=== PATIENT | female | born 1945 | race Caucasian/White ===

== ENCOUNTER 2017-01-27 15:01 | Emergency (ER) | payer MEDICARE, MEDICAID ==
[2017-01-27] MEDS ORDERED: ONDANSETRON 4 MG TAB.RAPDIS PO ONE (16:03)
[2017-01-27] MEDS ORDERED: NORMAL SALINE 500 ML IV ONE (16:03)
--- NOTE | 2017-01-27 16:05 | ER Document Report ---
ED Medical Screen (RME) - General Chief Complaint: Nausea/Vomiting Stated Complaint: NAUSEA TRAVEL OUTSIDE OF THE [place] IN LAST 30 DAYS: No - HPI Notes: 01/27/17 16:04 Patient receiving chemotherapy just finished up radiation coming in for a 4-5 day history of nausea vomiting unable to keep anything down. Patient feels weak. States her cancer doctor is Dr. Hogan - Related Data Allergies/Adverse Reactions: No Known Allergies Allergy (Verified 01/27/17 15:02) Past Medical History Renal/ Medical History: Denies: Hx Peritoneal Dialysis Review of Systems - Review of Systems Gastrointestinal: Nausea, Vomiting Physical Exam - Vital signs Vitals: Temp Pulse Resp BP Pulse Ox 98.5 F 121 H 15 115/72 93 01/27/17 15:02 01/27/17 15:02 01/27/17 15:02 01/27/17 15:02 01/27/17 15:02 - Abdominal Inspection: Normal Tenderness: Nontender Course - Vital Signs Vital signs: Temp Pulse Resp BP Pulse Ox 98.5 F 121 H 15 115/72 93 01/27/17 15:02 01/27/17 15:02 01/27/17 15:02 01/27/17 15:02 01/27/17 15:02
[2017-01-27 16:28] LABS: ABSOLUTE EOSINOPHILS # (AUTO) 0.1 10^3/uL (0.0-0.6); ABSOLUTE LYMPHOCYTES (AUTO) 0.4 10^3/uL (0.5-4.7); ABSOLUTE MONOCYTES (AUTO) 0.1 10^3/uL (0.1-1.4); ABSOLUTE NEUT (AUTO) 6.2 10^3/uL (1.7-8.2); BASOPHILS % (AUTO) 0.3 % (0-2); EOSINOPHILS % (AUTO) 1.6 % (0-6); HEMATOCRIT 32.4 % (36.0-47.0); HEMOGLOBIN 11.3 g/dL (12.0-15.5); HGB HCT DIFFERENCE 1.5; LYMPHOCYTES % (AUTO) 5.5 % (13-45); MEAN CORPUSCULAR HEMOGLOBIN 32.3 pg (27.0-33.4); MEAN CORPUSCULAR HGB CONC 34.9 g/dL (32.0-36.0); MEAN CORPUSCULAR VOLUME 93 fl (80-97); MONOCYTES % (AUTO) 1.1 % (3-13); RED CELL DISTRIBUTION WIDTH 18.4 % (11.5-14.0); SEGMENTED NEUTROPHILS % (AUTO) 91.5 % (42-78); WHITE BLOOD COUNT 6.7 10^3/uL (4.0-10.5)
[2017-01-27 16:44] LABS: ANION GAP 8 (5-19); BLOOD UREA NITROGEN 14 mg/dL (7-20); CALCIUM 9.4 mg/dL (8.4-10.2); CARBON DIOXIDE 30 mmol/L (22-30); CHLORIDE 94 mmol/L (98-107); CREATININE RESULT 0.66 mg/dL (0.52-1.25); GLUCOSE 390 mg/dL (75-110); POTASSIUM 4.1 mmol/L (3.6-5.0); SODIUM 132.1 mmol/L (137-145)
[2017-01-27] MEDS ORDERED: INSULIN REG, HUMAN 100 UNIT/ML 3 ML VIAL (PYX) SUBCUT ONE ×2 (17:44→18:09)
--- NOTE | 2017-01-27 17:48 | ER Document Report ---
ED General - General Chief Complaint: Nausea/Vomiting Stated Complaint: NAUSEA Mode of Arrival: Ambulatory Information source: Patient Notes: This is a 71-year-old female with a history of stage III lung cancer who presents with nausea and vomiting and decreased oral intake for the past 4-5 days. She states that she completed her last round of chemotherapy 5 days ago and has felt sick since. She denies any fevers or chills. No cough or shortness of breath. No dysuria. She states that today while she was in the waiting room she was able to eat half a bag of potato chips and a few drinks a Pepsi and has kept that down. At this time she is feeling somewhat better. She has an appointment with her oncologist tomorrow. TRAVEL OUTSIDE OF THE [place] IN LAST 30 DAYS: No - Related Data Allergies/Adverse Reactions: No Known Allergies Allergy (Verified 01/27/17 15:02) Past Medical History - General Information source: Patient - Social History Smoking Status: Current Every Day Smoker Frequency of alcohol use: None Drug Abuse: None Lives with: Alone Family History: Reviewed & Not Pertinent Patient has suicidal ideation: No Patient has homicidal ideation: No - Past Medical History Cardiac Medical History: Reports: Hx Hypertension Pulmonary Medical History: Reports: Hx COPD Endocrine Medical History: Reports: Hx Diabetes Mellitus Type 2 Renal/ Medical History: Denies: Hx Peritoneal Dialysis Malignancy Medical History: Reports: Hx Lung Cancer Past Surgical History: Reports: Hx Adenoidectomy, Hx Appendectomy, Hx Cholecystectomy, Hx Tonsillectomy Review of Systems - Review of Systems Notes: REVIEW OF SYSTEMS: CONSTITUTIONAL : Denies fever, chills, or sweats. EENT: Denies eye, ear, throat, or mouth pain or symptoms. Denies nasal or sinus congestion. CARDIOVASCULAR: Denies chest pain. RESPIRATORY: . Denies shortness of breath, difficulty breathing, or wheezing. Chronic cough but no recent change GASTROINTESTINAL: As per history of present illness. No abdominal pain. GENITOURINARY: Denies difficulty urinating, painful urination, burning, frequency, or blood in urine. MUSCULOSKELETAL: Denies neck or back pain or joint pain or swelling. SKIN: Denies rash or skin lesions. HEMATOLOGIC : Denies easy bruising or bleeding. LYMPHATIC: Denies swollen, enlarged glands. NEUROLOGICAL: Denies altered mental status or loss of consciousness. Denies headache. PSYCHIATRIC: Denies anxiety or stress or depression. ALL OTHER SYSTEMS REVIEWED AND NEGATIVE. Physical Exam - Vital signs Vitals: Temp Pulse Resp BP Pulse Ox 98.5 F 121 H 15 115/72 93 01/27/17 15:02 01/27/17 15:02 01/27/17 15:02 01/27/17 15:02 01/27/17 15:02 - Notes Notes: PHYSICAL EXAMINATION: GENERAL: Frail elderly female who is pleasant and conversant and in no acute distress. HEAD: Atraumatic, normocephalic. EYES: Pupils equal round and reactive to light, extraocular movements intact, sclera anicteric, conjunctiva are normal. ENT: nares patent, oropharynx clear without exudates. Mucous membranes somewhat dry. NECK: Normal range of motion, supple without lymphadenopathy LUNGS: Prolonged expiratory phase with scattered end expiratory wheezes. Good air movement bilaterally. No rhonchi HEART: Tachycardic rate with regular rhythm and no murmurs appreciated ABDOMEN: Soft, nontender, normoactive bowel sounds. No guarding, no rebound. No masses appreciated. EXTREMITIES: Normal range of motion, no pitting or edema. No cyanosis. NEUROLOGICAL: No gross focal motor or sensory deficits appreciated PSYCH: Normal mood, normal affect. SKIN: Warm, Dry, normal turgor, no rashes or lesions noted. Course - Re-evaluation Re-evalutation: 01/27/17 19:14 discussed with pt's oncologist Dr. Garcia who recommends reevaluation tomorrow to further assess hydration status. No further recommendations for tonight patient is stable for discharge. Patient really does want to go home now and states she is feeling better. She will follow up with her oncologist tomorrow or Saturday. Strict return precautions were discussed. She and her family are comfortable with the plan. She is noted to be eating a taco and tortilla chips and dip prior to her discharge, and states she feels much better. - Vital Signs Vital signs: Temp Pulse Resp BP Pulse Ox 98.5 F 121 H 14 127/86 H 97 01/27/17 15:02 01/27/17 15:02 01/27/17 19:01 01/27/17 19:00 01/27/17 19:01 - Laboratory Result Diagrams: 01/27/17 16:15 04/02/17 16:15 Laboratory results interpreted by me: 01/27/17 01/27/17 01/27/17 16:15 16:15 18:06 RBC 3.50 L Hgb 11.3 L Hct 32.4 L RDW 18.4 H Seg Neutrophils % 91.5 H Lymphocytes % 5.5 L Monocytes % 1.1 L Absolute Lymphocytes 0.4 L Sodium 132.1 L Chloride 94 L Glucose 390 H POC Glucose 337 H Urine Glucose (UA) 01/27/17 01/27/17 18:16 19:38 RBC Hgb Hct RDW Seg Neutrophils % Lymphocytes % Monocytes % Absolute Lymphocytes Sodium Chloride Glucose POC Glucose 287 H Urine Glucose (UA) >=500 H Discharge - Discharge Clinical Impression: Dehydration Nausea and vomiting Qualifiers: Vomiting type: unspecified Vomiting Intractability: non-intractable Qualified Code(s): R11.2 - Nausea with vomiting, unspecified Hyperglycemia due to type 2 diabetes mellitus Qualifiers: Diabetes mellitus intermediate project manager insulin use: unspecified care home insulin use status Qualified Code(s): E11.65 - Type 2 diabetes mellitus with hyperglycemia Condition: Stable Disposition: HOME, SELF-CARE Additional Instructions: Vomiting Vomiting can be part of many illnesses. Most cases of vomiting are due to gastroenteritis, usually a viral infection in the intestinal tract. There is no specific treatment. The disease will end by itself. For now, the main danger to your child is dehydration. During the first few hours of the illness, give clear liquids, such as Pedialyte. Try to give small quantities frequently, such as a teaspoon of liquid every minute or about an ounce of fluids every five to ten minutes. Medications may be prescribed by the physician for special cases. After an hour or two of fluids without vomiting, add rice cereal, toast, applesauce, or bananas and other more solid foods to the clear liquids. Call the physician or go to the hospital if vomiting increases or blood appears in the bowel movement or vomitus; if your child fails to improve, or if signs of dehydration occur (no wet diapers for eight to twelve hours, tongue and mouth become dry, not acting as alert as usual).Dehydration Dehydration can result from vomiting or diarrhea, fever, or decreased intake of fluids. If severe, hospitalization and intravenous fluids may be required. Most cases are treated at home with fluids by mouth. For the next 24 hours, drink lots of clear fluids. In mild cases, this can be soda pop or sports drinks. For more severe dehydration, the doctor may recommend special fluids such as Pedialyte or Lytren. Try to get three liters ( 3 quarts) of fluid per day. If vomiting occurs, continue to drink the fluids frequently (every 15 to 20 minutes), but in small amounts (one or two ounces). Depending on the type of dehydration, the doctor may prescribe antinausea medicine or potassium replacements. Call the doctor or return for re-examination if you become progressively weak, vomit repeatedly, or have other new symptoms. Follow up with Dr. Garcia tomorrow as scheduled as she would like to reassess your hydration status tomorrow. Return to the ER for fevers or any worsening symptoms or concerns. Referrals: LINDA GARCIA MD [ACTIVE STAFF] - Follow up tomorrow
[2017-01-27 18:29] LABS: APPEARANCE,URINE SLIGHTLY-CLOUDY; BILIRUBIN,URINE NEGATIVE (NEGATIVE); GLUCOSE, URINE >=500 mg/dL (NEGATIVE); KETONES,URINE NEGATIVE (NEGATIVE); LEUKOCYTE ESTERASE,URINE NEGATIVE (NEGATIVE); NITRITE,URINE NEGATIVE (NEGATIVE); PROTEIN,URINE NEGATIVE (NEGATIVE); URINE SPECIFIC GRAVITY 1.031; UROBILINOGEN,URINE NEGATIVE mg/dL (<2.0)
[2017-01-27 19:33] VITALS: BP 127/86
== END 2017-01-27 19:42 | disposition home or self-care (01) ==
LOC: ER 15:01
DX: E86.0 Dehydration (principal); E11.65 Type 2 diabetes mellitus with hyperglycemia; R11.2 Nausea with vomiting, unspecified; C34.90 Malignant neoplasm of unspecified part of unspecified bronchus or lung; Z79.899 Other long term (current) drug therapy; F17.200 Nicotine dependence, unspecified, uncomplicated
CPT/HCPCS: 99283; 96360; 36415; 82962; 85025; 80048; 81001; A9270 ×2; J7040; J1815; S0119

== ENCOUNTER → 2017-02-06 | Outpatient (CLI) | payer MEDICARE, MEDICAID | LOC: OD 13:31 | PROVIDERS: ATTEND Internal Medicine Medical Oncology | DX: R05 Cough (principal); J44.9 Chronic obstructive pulmonary disease, unspecified | CPT/HCPCS: 71020 ==

== ENCOUNTER 2017-03-12 11:59 | Inpatient (IN) | payer MEDICARE, MEDICAID ==
--- NOTE | 2017-03-12 12:22 | ER Document Report ---
ED Medical Screen (RME) - General Chief Complaint: Shortness Of Breath Stated Complaint: SHORTNESS OF BREATH Time Seen by Provider: 03/12/17 12:13 Notes: 71-year-old female with past medical history of asthma, COPD, states they lung cancer actively on chemotherapy who presents today with the onset last night of some shortness of breath. This was relieved somewhat by nebulizers. Patient denies any fevers, vomiting, or chest pain. She states some minimal bilateral leg edema for the last 3-4 months. Daughter is concerned because she states over the last 48 hours the patient has had some increased confusion above baseline. No slurred speech weakness or numbness. TRAVEL OUTSIDE OF THE [place] IN LAST 30 DAYS: No - Related Data Allergies/Adverse Reactions: No Known Allergies Allergy (Verified 03/12/17 12:03) Past Medical History - Past Medical History Cardiac Medical History: Reports: Hx Hypertension Pulmonary Medical History: Reports: Hx COPD Endocrine Medical History: Reports: Hx Diabetes Mellitus Type 2 Renal/ Medical History: Denies: Hx Peritoneal Dialysis Malignancy Medical History: Reports: Hx Lung Cancer Past Surgical History: Reports: Hx Adenoidectomy, Hx Appendectomy, Hx Cholecystectomy, Hx Tonsillectomy Physical Exam - Vital signs Vitals: Temp Pulse Resp BP Pulse Ox 97.6 F 104 H 18 115/57 L 95 03/12/17 12:03 03/12/17 12:03 03/12/17 12:03 03/12/17 12:03 03/12/17 12:03 Course - Vital Signs Vital signs: Temp Pulse Resp BP Pulse Ox 97.6 F 104 H 18 115/57 L 95 03/12/17 12:03 03/12/17 12:03 03/12/17 12:03 03/12/17 12:03 03/12/17 12:03
--- NOTE | 2017-03-12 12:30 | ER Document Report ---
ED Respiratory Problem - General Chief Complaint: Shortness Of Breath Stated Complaint: SHORTNESS OF BREATH Time Seen by Provider: 03/12/17 12:13 Mode of Arrival: Wheelchair Information source: Patient Notes: 71 yo ex smoker (until few weeks ago) female with shortness of breath (not enough oxygen-very scarey feeling) since midnight. Daughter visiting from [place] states her mild confusion, anemia, started later yesterday afternoon. Asking her same question 3-4 times. PMH: asthma, copd, diabetes, shoulder replacement, complete hyst, bladder slings, roberto, carpel tunnel surgery rt wrist, hand surgery, nose surgery, stage 3 right lung cancer (5-3 chemo-dr. marshall). Feet and leg swelling for 1.5 weeks. duoneb Nebulizer this am at 10 am helped her be able to take a deep breath and ability to talk pulse ox 97% without oxygen at this time. TRAVEL OUTSIDE OF THE [place] IN LAST 30 DAYS: No - Related Data Allergies/Adverse Reactions: No Known Allergies Allergy (Verified 03/12/17 12:03) Past Medical History - General Information source: Patient - Social History Smoking Status: Former Smoker - until 1.5 weeks ago Frequency of alcohol use: None Drug Abuse: None Lives with: Family Family History: Reviewed & Not Pertinent Patient has suicidal ideation: No Patient has homicidal ideation: No - Past Medical History Cardiac Medical History: Reports: Hx Hypertension Pulmonary Medical History: Reports: Hx COPD, Other - lung cancer Endocrine Medical History: Reports: Hx Diabetes Mellitus Type 2 Renal/ Medical History: Denies: Hx Peritoneal Dialysis Malignancy Medical History: Reports: Hx Lung Cancer Past Surgical History: Reports: Hx Adenoidectomy, Hx Appendectomy, Hx Cholecystectomy, Hx Tonsillectomy Review of Systems - Review of Systems Constitutional: No symptoms reported EENT: No symptoms reported Cardiovascular: No symptoms reported Respiratory: See HPI Gastrointestinal: No symptoms reported Genitourinary: No symptoms reported Female Genitourinary: No symptoms reported Musculoskeletal: No symptoms reported Skin: No symptoms reported Hematologic/Lymphatic: No symptoms reported Neurological/Psychological: No symptoms reported Physical Exam - Vital signs Vitals: Temp Pulse Resp BP Pulse Ox 97.6 F 104 H 18 115/57 L 95 03/12/17 12:03 03/12/17 12:03 03/12/17 12:03 03/12/17 12:03 03/12/17 12:03 Interpretation: Tachycardic, Tachypneic - General General appearance: Alert. No: Anxious - HEENT Head: Normocephalic, Atraumatic Eyes: Normal Pupils: PERRL Neck: Supple. No: Lymphadenopathy - Respiratory Respiratory status: No respiratory distress Chest status: Nontender Breath sounds: Wheezing - expiratory bilateral. No: Rales Chest palpation: Normal - Cardiovascular Rhythm: Regular Heart sounds: Normal auscultation Murmur: No - Abdominal Inspection: Normal Distension: No distension Bowel sounds: Normal Tenderness: Nontender Organomegaly: No organomegaly - Back Back: Normal, Nontender - Extremities General upper extremity: Normal inspection, Nontender, Normal color, Normal ROM , Normal temperature General lower extremity: Normal inspection, Nontender, Normal color, Normal ROM , Normal temperature, Normal weight bearing. No: Logan's sign - Neurological Neuro grossly intact: Yes Cognition: Normal Orientation: AAOx4 [place] Coma Scale Eye Opening: Spontaneous [place] Coma Scale Verbal: Oriented [place] Coma Scale Motor: Obeys Commands [place] Coma Scale Total: 15 Speech: Normal Motor strength normal: LUE, RUE, LLE, RLE Sensory: Normal - Psychological Associated symptoms: Normal affect, Normal mood - Skin Skin Temperature: Warm Skin Moisture: Dry Skin Color: Normal Course - Re-evaluation Re-evalutation: 03/12/17 13:57 dr. bazan consulted, saw the pt, rec trop repeat in 2 hours, conitnue with the steroids, get ekg and chest claudia then consult again. troponin 0.221 03/12/17 15:04 Less but persistent expiratory wheezing bilateral. Less strain with expiratory phase of breathing. They are attempting ABG. Pulse 110 respiratory rate 25 pulse ox is 97% on room air. I am going to give her a 5 mL normal saline bolus. 03/12/17 15:58 Dr. almaraz will admit inpatient telemetry and asked to order a CTA. I also added 2 L nasal cannula since her room air FiO2 on ABG was 91.6. Her O2 was 59 CO2 29. - Vital Signs Vital signs: Temp Pulse Resp BP Pulse Ox 97.6 F 104 H 19 134/75 H 96 03/12/17 12:03 03/12/17 12:03 03/12/17 15:00 03/12/17 14:01 03/12/17 15:00 - Laboratory Result Diagrams: 03/12/17 12:25 03/12/17 12:25 Laboratory results interpreted by me: 03/12/17 03/12/17 03/12/17 12:25 12:25 12:25 RBC 2.66 L Hgb 9.4 L Hct 28.4 L MCV 107 H MCH 35.3 H RDW 20.7 H Seg Neutrophils % 80.5 H Lymphocytes % 8.2 L ABG pO2 ABG HCO3 ABG Total CO2 ABG O2 Saturation Glucose 365 H POC Glucose NT-Pro-B Natriuret Pep 6330 H 03/12/17 03/12/17 14:58 15:00 RBC Hgb Hct MCV MCH RDW Seg Neutrophils % Lymphocytes % ABG pO2 59.0 L ABG HCO3 27.3 H ABG Total CO2 28.6 H ABG O2 Saturation 91.6 L Glucose POC Glucose 312 H NT-Pro-B Natriuret Pep Discharge - Discharge Clinical Impression: Shortness of breath, Hypoxemia, small right pleural effusion Cancer of right lung Qualifiers: Lung location: unspecified part of lung Qualified Code(s): C34.91 - Malignant neoplasm of unspecified part of right bronchus or lung Condition: Stable Admitting Provider: Hospitalist Unit Admitted: Telemetry Referrals: LINDA GARCIA MD [Primary Care Provider] - Follow up as needed
[2017-03-12 12:39] LABS: ABSOLUTE EOSINOPHILS # (AUTO) 0.1 10^3/uL (0.0-0.6); ABSOLUTE LYMPHOCYTES (AUTO) 0.5 10^3/uL (0.5-4.7); ABSOLUTE MONOCYTES (AUTO) 0.6 10^3/uL (0.1-1.4); ABSOLUTE NEUT (AUTO) 5.4 10^3/uL (1.7-8.2); BASOPHILS % (AUTO) 0.6 % (0-2); EOSINOPHILS % (AUTO) 1.4 % (0-6); HEMATOCRIT 28.4 % (36.0-47.0); HEMOGLOBIN 9.4 g/dL (12.0-15.5); HGB HCT DIFFERENCE -0.2; LYMPHOCYTES % (AUTO) 8.2 % (13-45); MEAN CORPUSCULAR HEMOGLOBIN 35.3 pg (27.0-33.4); MEAN CORPUSCULAR HGB CONC 33.1 g/dL (32.0-36.0); MEAN CORPUSCULAR VOLUME 107 fl (80-97); MONOCYTES % (AUTO) 9.3 % (3-13); RED BLOOD COUNT 2.66 10^6/uL (3.72-5.28); RED CELL DISTRIBUTION WIDTH 20.7 % (11.5-14.0); SEGMENTED NEUTROPHILS % (AUTO) 80.5 % (42-78); WHITE BLOOD COUNT 6.7 10^3/uL (4.0-10.5)
[2017-03-12] MEDS ORDERED: ALBUTEROL SULFATE 0.083% NEB 2.5 MG/3 ML AMPUL NEB ONE (12:46)
[2017-03-12 12:52] LABS: ANION GAP 11 (5-19); BLOOD UREA NITROGEN 8 mg/dL (7-20); CALCIUM 8.6 mg/dL (8.4-10.2); CARBON DIOXIDE 30 mmol/L (22-30); CHLORIDE 100 mmol/L (98-107); CREATININE RESULT 0.53 mg/dL (0.52-1.25); GLUCOSE 365 mg/dL (75-110); SODIUM 140.5 mmol/L (137-145)
[2017-03-12] MEDS ORDERED: PREDNISONE 20 MG TABLET PO ONE (12:53)
[2017-03-12 13:19] LABS: TROPONIN I 0.221 ng/mL
[2017-03-12] MEDS ORDERED: INSULIN REG, HUMAN 100 UNIT/ML 3 ML VIAL (PYX) IV ONE (13:48)
[2017-03-12] MEDS ORDERED: METHYLPREDNISOLONE INJ 125 MG/2 ML SDV IV ONE (13:50)
[2017-03-12] MEDS ORDERED: IPRATROPIUM/ALBUTEROL 0.5-2.5 MG/3 ML AMPUL NEB ONE (13:55)
[2017-03-12] MEDS ORDERED: NORMAL SALINE 1000 ML 500 ML IV ONE (15:03)
[2017-03-12 15:19] LABS: ARTERIAL BLOOD O2 SATURATION 91.6 % (94-98)
[2017-03-12 17:06] LABS: APPEARANCE,URINE CLEAR; BILIRUBIN,URINE NEGATIVE (NEGATIVE); GLUCOSE, URINE >=500 mg/dL (NEGATIVE); KETONES,URINE NEGATIVE (NEGATIVE); LEUKOCYTE ESTERASE,URINE NEGATIVE (NEGATIVE); NITRITE,URINE NEGATIVE (NEGATIVE); PROTEIN,URINE NEGATIVE (NEGATIVE); URINE SPECIFIC GRAVITY 1.021; UROBILINOGEN,URINE NEGATIVE mg/dL (<2.0)
[2017-03-12] MEDS ORDERED: ACETAMINOPHEN 325 MG TABLET PO PRN (18:03)
[2017-03-12] MEDS ORDERED: NORMAL SALINE 1000 ML 1,000 ML IV PRN (18:03)
[2017-03-12] MEDS ORDERED: LEVALBUTEROL HCL NEB 1.25 MG/3 ML AMPUL NEB PRN (18:03)
[2017-03-12] MEDS ORDERED: ONDANSETRON HCL INJ/PF 4 MG/2 ML SDV IV PRN (18:08)
[2017-03-12] MEDS ORDERED: GLUCAGON,HUMAN RECOMB 1 MG INJ IM PRN (18:14)
[2017-03-12] MEDS ORDERED: DEXTROSE 50%-WATER 25 GM/50 ML DISP.SYRIN IV PRN ×2 (18:14)
[2017-03-12] MEDS ORDERED: DEXTROSE 40% GEL 15 GM TUBE PO PRN ×2 (18:14)
[2017-03-12] MEDS ORDERED: IMIPENEM/CILASTATIN SODIUM INJ 500 MG VIAL IV SCH (18:30)
[2017-03-12] MEDS: INSULIN REG, HUMAN 100 UNIT/ML 3 ML VIAL (PYX) SUBCUT PRN ×2 (18:48→22:28)
--- NOTE | 2017-03-12 18:55 | PDOC H&P ---
History of Present Illness Admission Date/PCP: 03/12/17 16:07 LINDA GARCIA MD Patient complains of: Shortness of breath History of Present Illness: EMMA MORRISON is a 71 year old female, with stage III lung cancer, COPD brought to the emergency room because of shortness of breath and wheezing upon waking up earlier this morning. The patient was doing well last weekend, yesterday however she started to develop confusion as noticed by the family. The patient has chronic cough attributed to the lung cancer. This is associated with brownish phlegm. Patient had an episode of pleurisy about a week ago that resolved with Ativan and she attribute it to anxiety. There is no definite chills or fever. Patient occasionally has symptoms soreness and throat but a lot of it is dryness. Patient had intermittent diarrhea as well. Patient started to develop wheezing as stated above where she will take her nebulizers providing partial improvement, however the symptom persisted. She called her allergies will advise her to come to the emergency room for evaluation. In the emergency room she was found to have pleural effusion, COPD exacerbation and given nebulizers which her shortness of breath improved and she was referred for admission. Past Medical History Past Medical History: Medication reconciliation pending verification from the patient's pharmacist Cardiac Medical History: Reports: Hypertension Pulmonary Medical History: Reports: Chronic Obstructive Pulmonary Disease (COPD) , Other - lung cancer stage III Endocrine Medical History: Reports: Diabetes Mellitus Type 2 Malignancy Medical History: Reports: Lung Cancer, Other - Chronic anemia Past Surgical History Past Surgical History: Reports: Adenoidectomy, Appendectomy, Cholecystectomy, Hysterectomy, Tonsillectomy, Other - Carpal tunnel release, shoulder replacement Social History Lives with: Family Smoking Status: Former Smoker - until 1.5 weeks ago Frequency of Alcohol Use: None Hx Recreational Drug Use: No Drugs: None Family History Family History: CAD, Malignancy - Breast and lung cancer Parental Family History Reviewed: Yes Children Family History Reviewed: Yes Sibling(s) Family History Reviewed.: Yes Medication/Allergy Home Medications: Albuterol Sulfate [Albuterol Sulfate 2.5mg/3 mL] 1 vial NEB Q6HP PRN 03/12/17 Albuterol Sulfate [Ventolin Hfa] 1 puff IH QIDP PRN 03/12/17 Colesevelam HCl [Welchol 625 mg Tablet] 3 tab PO DAILY 03/12/17 Dronabinol [Marinol 2.5 mg Capsule] 2.5 mg PO BID 03/12/17 Fenofibrate Nanocrystallized [Fenofibrate] 145 mg PO QHS 03/12/17 Insulin Aspart [Novolog Flexpen] 8 units SQ MEALS 03/12/17 Iron Polysaccharide Complex [Ferrex 150] 150 mg PO DAILY 03/12/17 Losartan/Hydrochlorothiazide [Hyzaar 50-12.5 Tablet] 1 tab PO DAILY 03/12/17 Sitagliptin Phosphate [Januvia] 100 mg PO DAILY 03/12/17 Umeclidinium Brm/Vilanterol Tr [Anoro Ellipta 62.5-25 Mcg INH] 1 puff IH DAILY 03/12/17 Allergies/Adverse Reactions: No Known Allergies Allergy (Verified 03/12/17 12:03) Review of Systems Constitutional: PRESENT: weakness - Generalized, weight loss - 20 pounds at least. ABSENT: chills, fever(s), headache(s), weight gain Eyes: ABSENT: visual disturbances Ears: ABSENT: hearing changes Nose, Mouth, and Throat: PRESENT: sore throat - Occasional. ABSENT: mouth pain , vertigo Cardiovascular: PRESENT: dyspnea on exertion, edema - Both lower extremities. ABSENT: orthropnea, palpitations Respiratory: PRESENT: cough, dyspnea, sputum. ABSENT: hemoptysis Gastrointestinal: PRESENT: abdominal pain - Intermittent, diarrhea, nausea - Occasional. ABSENT: constipation, hematemesis, hematochezia, melena, vomiting Genitourinary: ABSENT: difficulty urinating, dysuria, hematuria Musculoskeletal: ABSENT: joint swelling Integumentary: ABSENT: pruritus, rash, wounds Neurological: ABSENT: abnormal gait, abnormal speech, confusion, dizziness, focal weakness, syncope Psychiatric: ABSENT: anxiety, depression, homidical ideation, suicidal ideation Endocrine: ABSENT: cold intolerance, heat intolerance, polydipsia, polyphagia, polyuria Hematologic/Lymphatic: ABSENT: easy bleeding, easy bruising Physical Exam Vital Signs: Temp Pulse Resp BP Pulse Ox 97.6 F 104 H 20 133/78 H 99 03/12/17 12:03 03/12/17 12:03 03/12/17 17:01 03/12/17 17:01 03/12/17 17:01 General appearance: PRESENT: no acute distress, thin, other - Alopecia Head exam: PRESENT: atraumatic, normocephalic Eye exam: PRESENT: conjunctiva pale, EOMI, PERRLA. ABSENT: scleral icterus Ear exam: PRESENT: normal external ear exam. ABSENT: drainage Mouth exam: PRESENT: dry mucosa, neck supple, tongue midline Throat exam: PRESENT: other - No thrush noted. ABSENT: post pharyngeal erythema , tonsillar erythema Neck exam: ABSENT: carotid bruit, JVD, lymphadenopathy, thyromegaly Respiratory exam: PRESENT: decreased breath sounds - Lower lung weber right more than the left, wheezes - Scattered bilateral expiratory. ABSENT: rales, rhonchi Cardiovascular exam: PRESENT: RRR, +S1, +S2. ABSENT: diastolic murmur, gallop, rubs, systolic murmur Pulses: PRESENT: normal dorsalis pedis pul Vascular exam: PRESENT: normal capillary refill GI/Abdominal exam: PRESENT: normal bowel sounds, soft. ABSENT: distended, guarding, mass, organolmegaly, rebound, tenderness Rectal exam: PRESENT: deferred Extremities exam: PRESENT: full ROM. ABSENT: calf tenderness, clubbing, pedal edema Neurological exam: PRESENT: alert, awake, oriented to person, oriented to place , oriented to time, oriented to situation Psychiatric exam: PRESENT: appropriate affect, normal mood. ABSENT: homicidal ideation, suicidal ideation Skin exam: PRESENT: dry, intact, warm. ABSENT: cyanosis, rash Results Laboratory Results: 03/12/17 16:30 Urine Color YELLOW Urine Appearance CLEAR Urine pH 5.0 Ur Specific [place] 1.021 Urine Protein NEGATIVE Urine Glucose (UA) >=500 H Urine Ketones NEGATIVE Urine Blood NEGATIVE Urine Nitrite NEGATIVE Ur Leukocyte Esterase NEGATIVE Urine WBC (Auto) 1 Urine RBC (Auto) 0 Impressions: Chest X-Ray 03/12/17 13:52 IMPRESSION: New trace right pleural effusion Minimal right basilar airspace disease likely atelectasis Chest/Abdomen CTA 03/12/17 15:58 IMPRESSION: No pulmonary emboli. Moderate free flowing right effusion in small left effusion. Volume loss in the right middle lobe. Assessment & Plan - Diagnosis (1) Bilateral pleural effusion Is this a current diagnosis for this admission?: Yes (2) COPD exacerbation Is this a current diagnosis for this admission?: Yes (3) Anemia of chronic disease Is this a current diagnosis for this admission?: Yes (4) Lung cancer Qualifiers: Laterality: right Lung location: unspecified part of lung Qualified Code(s): C34.91 - Malignant neoplasm of unspecified part of right bronchus or lung Is this a current diagnosis for this admission?: Yes (5) Type II diabetes mellitus Qualifiers: Diabetes mellitus complication status: with unspecified complications Diabetes mellitus manager long term care insulin use: without shelter use Qualified Code(s): E11.8 - Type 2 diabetes mellitus with unspecified complications Is this a current diagnosis for this admission?: Yes - Time Time Spent: 50 to 70 Minutes - Inpatient Certification Based on my medical assessment, after consideration of the patient's comorbidities, presenting symptoms, or acuity I expect that the services needed warrant INPATIENT care.: Yes I certify that my determination is in accordance with my understanding of Medicare's requirements for reasonable and necessary INPATIENT services [42 CFR 412.3e].: Yes Medical Necessity: Significant Comorbidiites Make Outpatient Treatment Too Risky , Need Close Monitoring Due to Risk of Patient Decompensation, Need for Nebulizer Therapy and Monitoring of Response, Need for IV Antibiotics Post Hospital Care: D/C Mainframe Analyst Documentation - Plan Summary Plan Summary: The patient will be admitted to telemetry. We will obtain thoracenteses and cultured the fluid and send it for cytology as well. In the meantime we will cultured of blood as well as the sputum and urine. We will begin broad- spectrum antibiotic. Intravenous steroids and [id number] nebulizer will be given. Supplemental oxygen will be placed. DVT prophylaxis with Lovenox will be added to the treatment regimen. We will consult Dr. Garcia for further evaluation. We will get cardiology opinion, regarding the abnormal troponins. Further testing depends on the initial evaluation as outlined above.
[2017-03-12] MEDS ORDERED: ENOXAPARIN SODIUM INJ 40 MG/0.4 ML DISP.SYRIN SUBCUT ONE (19:00)
[2017-03-12] MEDS: IPRATROPIUM/ALBUTEROL 0.5-2.5 MG/3 ML AMPUL NEB SCH ×2 (20:18→23:40)
[2017-03-12 20:42] LABS: PROTHROMBIN TIME 12.4 SEC (11.4-15.4)
[2017-03-12 20:43] LABS: PARTIAL THROMBOPLASTIN TIME 31.7 SEC (23.5-35.8)
[2017-03-12] MEDS: METHYLPREDNISOLONE INJ 125 MG/2 ML SDV IV SCH (21:54)
[2017-03-12] MEDS: IMIPENEM/CILASTATIN SODIUM 500 MG in NORMAL SALINE 100 ML IV SCH (21:58)
--- NOTE | 2017-03-12 22:10 | EKG REPORT ---
SEVERITY:- ABNORMAL ECG - SINUS TACHYCARDIA ABNRM R PROG, CONSIDER ASMI OR LEAD PLACEMENT NONSPECIFIC T ABNORMALITIES, LATERAL LEADS : Confirmed by: Irlanda Bearden MD 12-Mar-2017 22:09:59
--- NOTE | 2017-03-12 23:34 | PDOC CONSULTATION ---
Consultation Consult Date: 03/12/17 Attending physician:: MICHAEL ESPINOSA Consult reason:: Dyspnea History of Present Illness Admission Date/PCP: 03/12/17 18:03 LINDA GARCIA MD Patient complains of: Shortness of breath History of Present Illness: EMMA MORRISON is a 71 year old female, with stage III lung cancer, COPD brought to the emergency room because of shortness of breath and wheezing upon waking up earlier this morning. The patient was doing well last weekend, yesterday however she started to develop confusion as noticed by the family. The patient has chronic cough attributed to the lung cancer. This is associated with brownish phlegm. Patient had an episode of pleurisy about a week ago that resolved with Ativan and she attribute it to anxiety. There is no chills or fever. Patient had intermittent diarrhea as well. Patient started to develop wheezing and nebulizers providing only partial improvement. Pt came to the emergency room for evaluation. In the emergency room she was found to have pleural effusion, COPD exacerbation and given nebulizers with which her shortness of breath improved. I have been asked to sse patient because of elevated troponin I. Pt denies any chest pain. On questioning patient did admit having some chest discomfort several weeks ago while she was getting chemotherapy. Patient's daughter in the room. Patient denied any prior history of myocardial infarction, angina or congestive heart failure. Patient main symptoms has been dyspnea. Patient has noted some pedal edema intermittently. This history was reviewed, supplemented and confirmed. Past Medical History Cardiac Medical History: Reports: Hypertension Denies: Congestive Heart Failure, Coronary Artery Disease, Myocardial Infarction Pulmonary Medical History: Reports: Chronic Obstructive Pulmonary Disease (COPD) , Other - lung cancer stage III Neurological Medical History: Denies: Ischemic CVA Endocrine Medical History: Reports: Diabetes Mellitus Type 2 Malignancy Medical History: Reports: Lung Cancer, Other - Chronic anemia Past Surgical History Past Surgical History: Reports: Adenoidectomy, Appendectomy, Cholecystectomy, Hysterectomy, Tonsillectomy, Other - Carpal tunnel release, shoulder replacement Social History Information Source: Patient Lives with: Family Smoking Status: Former Smoker - until 1.5 weeks ago Frequency of Alcohol Use: None Hx Recreational Drug Use: No Drugs: None - Advance Directive Resuscitation Status: Full Code Surrogate healthcare decision maker:: Patient's daughter Family History Family History: CAD, Malignancy - Breast and lung cancer Parental Family History Reviewed: Yes Children Family History Reviewed: Yes Sibling(s) Family History Reviewed.: Yes Medication/Allergy Home Medications: Colesevelam HCl [Welchol 625 mg Tablet] 3 tab PO DAILY 03/12/17 Dronabinol [Marinol 2.5 mg Capsule] 2.5 mg PO BID 03/12/17 Fenofibrate Nanocrystallized [Fenofibrate] 145 mg PO QHS 03/12/17 Insulin Aspart [Novolog Flexpen] 8 units SQ MEALS 03/12/17 Iron Polysaccharide Complex [Ferrex 150] 150 mg PO DAILY 03/12/17 Losartan/Hydrochlorothiazide [Hyzaar 50-12.5 Tablet] 1 tab PO DAILY 03/12/17 Sitagliptin Phosphate [Januvia] 100 mg PO DAILY 03/12/17 Umeclidinium Brm/Vilanterol Tr [Anoro Ellipta 62.5-25 Mcg INH] 1 puff IH DAILY 03/12/17 Aspirin [Aspirin 325 mg Tablet] 325 mg PO DAILY tablet 03/16/17 Clindamycin HCl [Cleocin 150 mg Capsule] 300 mg PO Q6 #40 capsule 03/16/17 Ipratropium [place] [Atrovent 0.02% Neb 0.5 mg/2.5 ml Ampul] 0.5 mg NEB RTQ6 # 120 vial.neb 03/16/17 Levalbuterol HCl [Xopenex Neb 1.25 mg/3 ml Ampul] 1.25 mg NEB RTQ6 #120 vial.neb 03/16/17 Levofloxacin [Levaquin 750 mg Tablet] 750 mg PO DAILY #10 tablet 03/16/17 Metoprolol Tartrate [Lopressor 25 mg Tablet] 25 mg PO Q12 #60 tablet 03/16/17 Prednisone [Sterapred Ds] 1 pkg PO ASDIR PRN 12 Days 03/16/17 Allergies/Adverse Reactions: No Known Allergies Allergy (Verified 03/12/17 12:03) Review of Systems Constitutional: ABSENT: chills, fever(s), headache(s), weight gain, weight loss Eyes: ABSENT: visual disturbances Ears: ABSENT: hearing changes Cardiovascular: PRESENT: chest pain, dyspnea on exertion, edema, orthropnea. ABSENT: palpitations Respiratory: PRESENT: cough, sputum. ABSENT: hemoptysis Gastrointestinal: ABSENT: abdominal pain, constipation, diarrhea, hematemesis, hematochezia, nausea, vomiting Genitourinary: ABSENT: dysuria, hematuria Musculoskeletal: ABSENT: joint swelling Integumentary: ABSENT: rash, wounds Neurological: ABSENT: abnormal gait, abnormal speech, confusion, dizziness, focal weakness, syncope Psychiatric: ABSENT: anxiety, depression, homidical ideation, suicidal ideation Endocrine: ABSENT: cold intolerance, heat intolerance, polydipsia, polyuria Hematologic/Lymphatic: ABSENT: easy bleeding, easy bruising Physical Exam Vital Signs: Temp Pulse Resp BP Pulse Ox 98.2 F 115 H 16 126/62 H 100 03/12/17 21:02 03/12/17 21:02 03/12/17 21:02 03/12/17 21:02 03/12/17 21:02 Intake & Output 03/11/17 03/12/17 03/13/17 06:59 06:59 06:59 Weight 54.9 kg General appearance: PRESENT: no acute distress, well-developed, well-nourished Head exam: PRESENT: atraumatic, normocephalic Eye exam: PRESENT: conjunctiva pink, EOMI, PERRLA. ABSENT: scleral icterus Ear exam: PRESENT: normal external ear exam Mouth exam: PRESENT: moist, tongue midline Neck exam: ABSENT: carotid bruit, JVD, lymphadenopathy, thyromegaly Respiratory exam: PRESENT: prolonged expiratory phas, rales - Bib[place], wheezes. ABSENT: rhonchi Cardiovascular exam: PRESENT: RRR, +S1, +S2, systolic murmur - 1/6 ejection aortic area.. ABSENT: diastolic murmur, gallop, rubs Pulses: PRESENT: normal dorsalis pedis pul Vascular exam: PRESENT: normal capillary refill GI/Abdominal exam: PRESENT: normal bowel sounds, soft. ABSENT: distended, guarding, mass, organolmegaly, rebound, tenderness Rectal exam: PRESENT: deferred Extremities exam: PRESENT: full ROM, pedal edema, +1 edema. ABSENT: calf tenderness, clubbing Musculoskeletal exam: PRESENT: ambulatory, other - No joint swelling noted Neurological exam: PRESENT: alert, awake, oriented to person, oriented to place , oriented to time, oriented to situation, CN II-XII grossly intact. ABSENT: motor sensory deficit Psychiatric exam: PRESENT: appropriate affect, normal mood. ABSENT: homicidal ideation, suicidal ideation Skin exam: PRESENT: dry, intact, warm. ABSENT: cyanosis, rash Results EKG Comments: NSR, ASMI age indeterminate Impressions: Chest X-Ray 03/12/17 13:52 IMPRESSION: New trace right pleural effusion Minimal right basilar airspace disease likely atelectasis Chest/Abdomen CTA 03/12/17 15:58 IMPRESSION: No pulmonary emboli. Moderate free flowing right effusion in small left effusion. Volume loss in the right middle lobe. Assessment & Plan - Diagnosis (1) Troponin level elevated Is this a current diagnosis for this admission?: Yes (2) CHF (congestive heart failure) Qualifiers: Congestive heart failure type: unspecified congestive heart failure type Congestive heart failure chronicity: acute on chronic Qualified Code(s ): I50.9 - Heart failure, unspecified Is this a current diagnosis for this admission?: Yes (3) COPD exacerbation Is this a current diagnosis for this admission?: Yes (4) Hypoxemia Is this a current diagnosis for this admission?: Yes (5) Shortness of breath Is this a current diagnosis for this admission?: Yes (6) Type II diabetes mellitus Qualifiers: Diabetes mellitus complication status: with unspecified complications Diabetes mellitus usp insulin use: without truck terminal manager use Qualified Code(s): E11.8 - Type 2 diabetes mellitus with unspecified complications; Z79.4 - longterm (current) use of insulin Is this a current diagnosis for this admission?: Yes - Notes Notes: Troponin I elevation: This is felt to be multifactorial and could be related to CHF, COPD exacerbation, hypoxemia etc. Sometimes this could be lab error in people with cancer because of interference with assay. I have added total CK and CK-MB to be drawn. Have ordered a 2D echo. Patient has risk factors and does have abnormal EKG indicative of prior anteroseptal TN therefore possibility of left over cardiac enzyme elevation from previous infarction is there. CHF: Have ordered a 2D echo to determine cause of CHF. Most likely systolic plus diastolic dysfunction in view of abnormal EKG. COPD with exacerbation: Continue current management plan. Hypoxemia: Continue oxygen supplementation and intermittent positive pressure noninvasive ventilation. Diabetes: Being expectantly managed by hospitalist. Check CKMB, Total CK, Echocardiogram. Will follow patient closely. - Time Time Spent: 30 to 50 Minutes - CODE STATUS was discussed, patient remains full code. Surrogate decision-maker patient's daughter. Multiple medical problems were addressed. More than 50% of the time spent coordinating care, discussing management plans with involved caregivers. Management plans discussed with involved personnels. Medical decision making was of moderate to high complexity , patient's has multiple severe comorbidities. Medications reviewed and adjusted accordingly: Yes
[2017-03-13] MEDS: METHYLPREDNISOLONE INJ 125 MG/2 ML SDV IV SCH ×4 (02:54→23:00)
[2017-03-13] MEDS: IMIPENEM/CILASTATIN SODIUM 500 MG in NORMAL SALINE 100 ML IV SCH ×4 (02:58→23:00)
[2017-03-13] MEDS: IPRATROPIUM/ALBUTEROL 0.5-2.5 MG/3 ML AMPUL NEB SCH ×5 (03:21→20:35)
[2017-03-13] MEDS: ENOXAPARIN SODIUM INJ 40 MG/0.4 ML DISP.SYRIN SUBCUT SCH (08:00)
[2017-03-13] MEDS: FUROSEMIDE INJ/PF 40 MG/4 ML SDV IV SCH (10:00)
[2017-03-13] MEDS: DOCUSATE SODIUM 100 MG CAPSULE PO SCH ×2 (10:00→18:00)
[2017-03-13] MEDS ORDERED: INSULIN LISPRO 100 UNIT/ML 3 ML VIAL ONE (16:27)
[2017-03-13] MEDS ORDERED: LORAZEPAM INJ 2 MG/1 ML VIAL ONE (17:35)
[2017-03-13] MEDS ORDERED: DILTIAZEM HCL INJ 25 MG/5 ML VIAL ONE (17:49)
--- NOTE | 2017-03-13 18:59 | XCELERA REPORT ---
[address] [address] Transthoracic Echocardiogram Report Name: EMMA MORRISON Age: 71 yrs Gender: Female : 1945 Patient Status: Inpatient Patient Location: [id number] Study Date: 03/13/2017 02:26 PM Height: 62 in Weight: 114 lb BSA: 1.5 m2 Procedure: A complete two-dimensional transthoracic echocardiogram was performed (2D, M-mode, spectral and color flow Doppler). The study was technically difficult with many images being suboptimal in quality. Reason For Study: pleural effusion, elevated BNP Ordering Physician: MICHAEL ESPINOSA Performed By: Nae Rowland Interpretation Summary The Ejection Fraction estimate is 40-45% Left ventricular systolic function is mild to moderately reduced. The left ventricle is grossly normal size. Doppler measurements suggest reversible restrictive left ventricular relaxation, which is associated with grade III/IV or moderate diastolic dysfunction There is mid to distal anterior wall moderate hypokinesis The right ventricular systolic function is normal. Borderline left atrial enlargement. The right atrium is normal in size There is a mild amount of mitral regurgitation There is no mitral valve stenosis. No aortic regurgitation is present. There is no aortic valve stenosis There is a trace or physiologic amount of tricuspid regurgitation Tricuspid regurgitation jet envelope not well defined to measure RV systolic pressure accurately. The aortic root is not well visualized. The inferior vena cava appeared normal and decreased < 50% with respiration (RAP 10-15 mmHg) There is no pericardial effusion. MMode/2D Measurements \T\ Calculations RVDd: 2.7 cm LVIDd: 4.4 cm FS: 16.2 % Ao root diam: 2.6 cm IVSd: 1.1 cm LVIDs: 3.7 cm EDV(Teich): 88.6 ml LVPWd: 1.0 cm ESV(Teich): 58.3 ml Ao root area: 5.4 cm2 EF(Teich): 34.3 % LA dimension: 2.8 cm LVOT diam: 2.0 cm LVOT area: 3.2 cm2 Doppler Measurements \T\ Calculations MV E max ricardo: MV P1/2t max ricardo: Ao V2 max: LV V1 max P.4 cm/sec 188.2 cm/sec 131.0 cm/sec 4.6 mmHg MV P1/2t: 37.3 msec Ao max PG: LV V1 max: MVA(P1/2t): 5.9 cm2 6.9 mmHg 106.9 cm/sec MV dec slope: MEAGAN(V,D): 2.6 cm2 1478 cm/sec2 PA V2 max: 111.6 cm/sec PA max P.0 mmHg Left Ventricle The left ventricle is grossly normal size. There is normal left ventricular wall thickness. Left ventricular systolic function is mild to moderately reduced. The Ejection Fraction estimate is 40-45%. Doppler measurements suggest reversible restrictive left ventricular relaxation, which is associated with grade III/IV or moderate diastolic dysfunction. There is mid to distal anterior wall moderate hypokinesis. Right Ventricle The right ventricle is grossly normal size. There is normal right ventricular wall thickness. The right ventricular systolic function is normal. Atria The right atrium is normal in size. Borderline left atrial enlargement. Interarterial septum not well visualized and not well dopplered. Cannot comment on ASD/PFO presence. Mitral Valve The mitral valve leaflets are sclerotic, but show no functional abnormalities. There is no mitral valve stenosis. There is a mild amount of mitral regurgitation. Aortic Valve The aortic valve is not well visualized secondary to technical limitations. There is no aortic valve stenosis. No aortic regurgitation is present. Tricuspid Valve The tricuspid valve is not well visualized secondary to technical limitations. There is no tricuspid stenosis. There is a trace or physiologic amount of tricuspid regurgitation. Tricuspid regurgitation jet envelope not well defined to measure RV systolic pressure accurately. Pulmonic Valve The pulmonic valve is not well visualized. Great Vessels The aortic root is not well visualized. The inferior vena cava appeared normal and decreased < 50% with respiration (RAP 10-15 mmHg). Effusions There is no pericardial effusion. : MICHAEL ESPINOSA > Ximena Hester
[2017-03-13] MEDS ORDERED: LEVALBUTEROL HCL NEB 1.25 MG/3 ML AMPUL NEB ONE (20:39)
[2017-03-13] MEDS ORDERED: IPRATROPIUM BROMIDE 0.02% NEB 0.5 MG/2.5 ML AMPUL NEB ONE (20:39)
--- NOTE | 2017-03-13 22:26 | PDOC PROGRESS REPORT ---
Subjective Progress Note for:: 03/13/17 Subjective:: Had a sudden deterioration earlier this evening. Patient was noted to have supraventricular tachycardia with rapid ventricular response. Patient was given IV Cardizem following which her heart rate improved. Patient was noted to have increased shortness of breath for which she was placed on bilevel therapy. Patient on questioning denied any chest pain. I had the opportunity to talk with patient's daughter today. Patient claims that 3 weeks ago she had an episode of severe central chest discomfort. This happened during chemotherapy. There is some concern that she had a myocardial infarction at that time. 2D echo was reviewed. It does show evidence of mid and distal anterior wall moderate hypokinesia with some thickening of the wall indicative of myocardial infarction but not recent. Physical Exam Vital Signs: Temp Pulse Resp BP Pulse Ox 97.5 F 125 H 16 132/60 H 100 03/13/17 03:46 03/13/17 20:35 03/13/17 20:35 03/13/17 03:46 03/13/17 20:35 Intake & Output 03/12/17 03/13/17 03/14/17 06:59 06:59 06:59 Intake Total 460 Output Total 0 Balance 460 Weight 54.9 kg Exam: GENERAL: well-nourished and in mild respiratory distress. Alert and oriented x3 HEAD: Atraumatic, normocephalic. Alopecia secondary to chemotherapy EYES: Pupils equal round and reactive to light, extraocular movements intact, sclera anicteric, conjunctiva are normal. ENT: TMs normal, nares patent, oropharynx clear without exudates. Moist mucous membranes. No oral ulcerations or bleeding gums noted NECK: supple without lymphadenopathy. Trachea is central. No cervical or axillary lymphadenopathy noted. Carotids are 2+, JVD 8-10 cm LUNGS: Respiration seems mildly labored, no significant accessory muscle action noted. Bilateral mild wheezing noted and few bibasilar coarse crackles noted no significant dullness noted on percussion. CHEST: Palpation of the chest wall shows no significant chest wall tenderness. No other significant abnormalities noted. 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 ABDOMEN: Soft, no significant tenderness appreciated, normoactive bowel sounds. No guarding, no rebound. No rigidity noted . No masses appreciated. EXTREMITIES: Pedal pulses are 1-2+, no calf tenderness noted. No clubbing or cyanosis.trace to 1+ pedal edema noted NEUROLOGICAL: Focused neurological exam showed no significant neurologic deficit. Normal speech, no focal weakness appreciated. PSYCH: Normal mood, normal affect. Judgment and insight within normal limits. SKIN: No significant ecchymosis, rash, ulcerations or signs of pruritus noted. MUSCULOSKELETAL EXAM: No significant joint swelling noted. Results Laboratory Results: 03/12/17 23:41 Creatine Kinase 39 Impressions: Chest/Abdomen CTA 03/12/17 15:58 IMPRESSION: No pulmonary emboli. Moderate free flowing right effusion in small left effusion. Volume loss in the right middle lobe. Assessment & Plan - Diagnosis (1) Supraventricular tachycardia Is this a current diagnosis for this admission?: Yes (2) Non-STEMI (non-ST elevated myocardial infarction) Is this a current diagnosis for this admission?: Yes (3) Troponin level elevated Is this a current diagnosis for this admission?: Yes (4) CHF (congestive heart failure) Qualifiers: Congestive heart failure type: unspecified congestive heart failure type Congestive heart failure chronicity: acute on chronic Qualified Code(s ): I50.9 - Heart failure, unspecified Is this a current diagnosis for this admission?: Yes (5) COPD exacerbation Is this a current diagnosis for this admission?: Yes (6) Hypoxemia Is this a current diagnosis for this admission?: Yes (7) Shortness of breath Is this a current diagnosis for this admission?: Yes (8) Type II diabetes mellitus Qualifiers: Diabetes mellitus complication status: with unspecified complications Diabetes mellitus senior living insulin use: without terminologist use Qualified Code(s): E11.8 - Type 2 diabetes mellitus with unspecified complications; Z79.4 - medical terminologist (current) use of insulin Is this a current diagnosis for this admission?: Yes - Notes Notes: Supraventricular tachycardia: Patient noted to have supraventricular tachycardia. Since patient has coronary artery disease and also LV systolic dysfunction and CHF, will add small dose of beta-ysabel. Will also add a small dose of digoxin. Will avoid using Cardizem. Non-STEMI: Patient has EKG and echocardiographic evidence of myocardial infarction. Exact onset is not clear. MB fraction pending. Coronary artery disease: Recommend high potency statin therapy, aspirin therapy , beta ysabel, CADE inhibitor therapy. CHF: Seems fairly compensated. However there is some still JVP elevation. Continue diuretic therapy Malignancy: Patient now has CHF and cardiomyopathy therefore antineoplastic therapy may need to be adjusted. Pleural effusion: Possibly related to CHF rather than malignancy but patient may need diagnostic thoracentesis. COPD exacerbation: Patient continues to have some wheezing. Continue bronchodilator therapy. Coronary artery disease: Believe this diagnosis cannot be made because of wall motion abnormality and LV systolic dysfunction. Approximately 45 minutes spent in taking care of this lady. - Time Time with patient: Greater than 35 minutes - CODE STATUS was discussed, patient remains full code. Surrogate decision-maker unchanged. Multiple medical problems were addressed. More than 50% of the time spent coordinating care, discussing management plans with involved caregivers. Management plans discussed with involved personnels. Medical decision making was of moderate to high complexity, patient's has multiple severe comorbidities. Discussed patient' s condition with patient's daughter. Discussed management plan. Discussed that she had a myocardial infarction, exact onset is not clear. Medications reviewed and adjusted accordingly: Yes
[2017-03-13] MEDS ORDERED: INSULIN GLARGINE,HUM.REC.ANLOG 1,000 UNIT/10 ML UNIT SUBCUT ONE ×2 (22:59→23:00)
[2017-03-13] MEDS: INSULIN GLARGINE,HUM.REC.ANLOG 300 UNIT/3 ML INSULN.PEN SUBCUT SCH (23:01)
[2017-03-13 23:05] LABS: VENOUS BLOOD BASE EXCESS 2.1 mmol/L; VENOUS BLOOD HCO3 30.4 mmol/L (20-32); VENOUS BLOOD PH 7.29 (7.30-7.42)
[2017-03-13 23:08] LABS: VENOUS BLOOD PCO2 65.1 mmHg (35-63)
--- NOTE | 2017-03-13 23:44 | PROGRESS NOTE E ---
Progress Note NAME: EMMA MORRISON : 1945 AGE: 71Y DATE: 03/13/2017 ROOM: 329 SUBJECTIVE: The patient is feeling better today in terms of wheezing. However, shortness of breath on exertion still persists. Denies any chills or fever. No nausea or vomiting. No chest pain or abdominal pain. No diarrhea. OBJECTIVE: VITAL SIGNS: Blood pressure 111/67, pulse 120, respirations 20, temperature 98.1 degrees Fahrenheit. GENERAL: The patient is awake, alert, and oriented to 3 spheres. There is no jugular venous distention. RESPIRATORY: Lung sounds: Decreased breath sounds in the lower lung weber, right more than the left. Wheezing is negative. CARDIOVASCULAR: Heart is regular with no gallops. ABDOMEN: Flat, soft, nontender, and nondistended. Bowel sounds are present. EXTREMITIES: Lower extremities with trace pretibial edema. Mucosa in nail beds with no cyanosis. DIAGNOSTIC DATA: Laboratory: Anion gap is normal. Potassium is normal. Blood sugar elevated 400-500. ASSESSMENT: 1. BILATERAL PLEURAL EFFUSION. 2. COPD EXACERBATION. 3. UNCONTROLLED TYPE 2 DIABETES MELLITUS, INSULIN REQUIRING. 4. ANEMIA OF CHRONIC DISEASE. 5. STAGE III LUNG CANCER ON THE RIGHT. PLAN: The patient will be placed on Lantus 20 units at bedtime. I will resume the patient's Novolog. We will likewise resume Januvia, continue steroids, awaiting thoracentesis, awaiting Dr. Hogan's input. We will obtain diagnostic and therapeutic thoracentesis. DICTATING PHYSICIAN: MICHAEL ESPINOSA M.D. [id number] PHY#: [id number] ID: [id number] JOB#: [id number] ACCT: [id number] cc: >
[2017-03-13] MEDS: INSULIN REG, HUMAN 100 UNIT/ML 3 ML VIAL (PYX) SUBCUT PRN (23:52)
[2017-03-14 00:32] LABS: ANION GAP 12 (5-19); BLOOD UREA NITROGEN 21 mg/dL (7-20); CALCIUM 9.4 mg/dL (8.4-10.2); CARBON DIOXIDE 26 mmol/L (22-30); CHLORIDE 99 mmol/L (98-107); CREATININE RESULT 0.73 mg/dL (0.52-1.25); POTASSIUM 4.7 mmol/L (3.6-5.0); SODIUM 137.3 mmol/L (137-145)
[2017-03-14 00:42] LABS: GLUCOSE 513 mg/dL (75-110)
[2017-03-14] MEDS: LEVALBUTEROL HCL NEB 1.25 MG/3 ML AMPUL NEB SCH ×4 (01:32→20:15)
[2017-03-14] MEDS: IPRATROPIUM BROMIDE 0.02% NEB 0.5 MG/2.5 ML AMPUL NEB SCH ×4 (01:32→20:16)
[2017-03-14] MEDS ORDERED: INSULIN REG, HUMAN 100 UNIT/ML 3 ML VIAL (PYX) SUBCUT ONE (01:34)
[2017-03-14 03:36] LABS: VENOUS BLOOD BASE EXCESS 5.9 mmol/L; VENOUS BLOOD HCO3 31.6 mmol/L (20-32); VENOUS BLOOD PH 7.4 (7.30-7.42)
[2017-03-14] MEDS: LANSOPRAZOLE 30 MG TAB.RAP.DR PO SCH (05:27)
[2017-03-14 05:43] LABS: ANION GAP 11 (5-19); BLOOD UREA NITROGEN 22 mg/dL (7-20); CALCIUM 9.5 mg/dL (8.4-10.2); CARBON DIOXIDE 27 mmol/L (22-30); CHLORIDE 102 mmol/L (98-107); CREATININE RESULT 0.68 mg/dL (0.52-1.25); GLUCOSE 346 mg/dL (75-110); POTASSIUM 4.5 mmol/L (3.6-5.0); SODIUM 140.2 mmol/L (137-145)
[2017-03-14 05:45] LABS: PARTIAL THROMBOPLASTIN TIME 26.6 SEC (23.5-35.8); PROTHROMBIN TIME 13.2 SEC (11.4-15.4)
[2017-03-14 06:27] LABS: HEMATOCRIT 30.8 % (36.0-47.0); HEMOGLOBIN 10.2 g/dL (12.0-15.5); HGB HCT DIFFERENCE -0.2; MEAN CORPUSCULAR HGB CONC 33.1 g/dL (32.0-36.0); MEAN CORPUSCULAR VOLUME 106 fl (80-97); RED BLOOD COUNT 2.92 10^6/uL (3.72-5.28); WHITE BLOOD COUNT 10.7 10^3/uL (4.0-10.5)
[2017-03-14] MEDS ORDERED: HUM INSULIN NPH/REG INSULIN HM 100 UNIT/1 ML 3 ML SUBCUT SCH (08:00)
[2017-03-14] MEDS: INSULIN LISPRO 100 UNIT/ML 3 ML VIAL SUBCUT SCH ×3 (08:54→17:24)
[2017-03-14] MEDS: INSULIN REG, HUMAN 100 UNIT/ML 3 ML VIAL (PYX) SUBCUT PRN ×3 (08:54→21:51)
[2017-03-14] MEDS: IMIPENEM/CILASTATIN SODIUM 500 MG in NORMAL SALINE 100 ML IV SCH ×3 (08:55→21:52)
[2017-03-14] MEDS: METHYLPREDNISOLONE INJ 125 MG/2 ML SDV IV SCH (08:55)
[2017-03-14 09:56] LABS: CALCIUM 9.3 mg/dL (8.4-10.2)
[2017-03-14 09:59] LABS: BLOOD UREA NITROGEN 13 mg/dL (7-20); GLUCOSE 417 mg/dL (75-110)
[2017-03-14 10:00] LABS: ANION GAP 10 (5-19); CARBON DIOXIDE 28 mmol/L (22-30); CHLORIDE 101 mmol/L (98-107); CREATININE RESULT 0.53 mg/dL (0.52-1.25); MAGNESIUM 1.8 mg/dL (1.6-2.3); PHOSPHORUS 3.9 mg/dL (2.5-4.5); POTASSIUM 4.6 mmol/L (3.6-5.0); SODIUM 139.3 mmol/L (137-145)
[2017-03-14 10:01] LABS: CREATINE KINASE MB 1.31 ng/mL (<4.55)
[2017-03-14 10:02] LABS: TROPONIN I 0.176 ng/mL
[2017-03-14 10:09] LABS: ARTERIAL BLOOD BASE EXCESS -2.6 mmol/L; ARTERIAL BLOOD O2 SATURATION 96 % (94-98)
[2017-03-14 10:13] LABS: ANISOCYTOSIS 2+; BASOPHILS % (MANUAL) 0 % (0-2); EOSINOPHILS % (MANUAL) 1 % (0-6); HYPOCHROMASIA SLIGHT; LYMPHOCYTES % (MANUAL) 3 % (13-45); POLYCHROMASIA 1+; TOTAL CELLS COUNTED 100; TOXIC GRANULATION 1+; TOXIC VACUOLATION PRESENT
--- NOTE | 2017-03-14 10:18 | PDOC PROGRESS REPORT ---
Subjective Progress Note for:: 03/14/17 Subjective:: The patient is feeling better. Had resp distress yesterday requiring BIPAP. She is off BIPAP now. Developed SVT and required IV cardizem. Cardiology evaluated patient. Placed on resp/airborne isolation due to cavitary lesion described on xray. Denies night sweats, afternoon rise in temp, and hemoptysis recently. Prior (?) hemoptysis/hematemesis in past due to radiation. Physical Exam Vital Signs: Temp Pulse Resp BP Pulse Ox 97.8 F 107 H 18 114/59 L 98 03/14/17 08:00 03/14/17 08:01 03/14/17 08:01 03/14/17 08:00 03/14/17 08:01 Intake & Output 03/13/17 03/14/17 03/15/17 06:59 06:59 06:59 Intake Total 460 807 Output Total 0 500 Balance 460 307 Weight 54.9 kg 56.5 kg General appearance: PRESENT: no acute distress, cooperative Head exam: PRESENT: normocephalic Eye exam: PRESENT: EOMI Mouth exam: PRESENT: moist, neck supple Neck exam: ABSENT: JVD Respiratory exam: PRESENT: decreased breath sounds - B/L, rhonchi - few, unlabored. ABSENT: wheezes Cardiovascular exam: PRESENT: RRR. ABSENT: gallop GI/Abdominal exam: PRESENT: soft. ABSENT: distended, tenderness Extremities exam: ABSENT: pedal edema Neurological exam: PRESENT: alert, awake, oriented to situation Skin exam: PRESENT: dry, warm. ABSENT: cyanosis Results Laboratory Results: 03/14/17 05:19 03/13/17 03/13/17 03/13/17 04:37 22:46 23:58 VBG pH 7.29 L VBG pCO2 65.1 H* VBG HCO3 30.4 VBG Base Excess 2.1 Sodium 139.3 137.3 Potassium 4.6 4.7 Chloride 101 99 Carbon Dioxide 28 26 Anion Gap 10 12 BUN 13 21 H Creatinine 0.53 0.73 Est GFR ( Amer) > 60 > 60 Est GFR (Non-Af Amer) > 60 > 60 Glucose 417 H* 513 H* Calcium 9.3 9.4 Phosphorus 3.9 Magnesium 1.8 03/14/17 03/14/17 03:28 05:19 VBG pH 7.40 VBG pCO2 52.0 VBG HCO3 31.6 VBG Base Excess 5.9 Sodium 140.2 Potassium 4.5 Chloride 102 Carbon Dioxide 27 Anion Gap 11 BUN 22 H Creatinine 0.68 Est GFR ( Amer) > 60 Est GFR (Non-Af Amer) > 60 Glucose 346 H Calcium 9.5 Phosphorus Magnesium 03/12/17 03/13/17 23:41 04:37 Creatine Kinase 39 CK-MB (CK-2) 1.31 Troponin I 0.176 Impressions: Chest/Abdomen CTA 03/12/17 15:58 IMPRESSION: No pulmonary emboli. Moderate free flowing right effusion in small left effusion. Volume loss in the right middle lobe. Chest X-Ray 03/13/17 00:00 IMPRESSION: There is an apparent CABG or a process overlying the right hilum with an apparent air-fluid level as noted above. This could be related to an infectious process or necrotic neoplasm. Clinical correlation is recommended. Small right pleural effusion is identified. Other findings as noted above Assessment & Plan - Diagnosis (1) Supraventricular tachycardia Is this a current diagnosis for this admission?: Yes (2) Non-STEMI (non-ST elevated myocardial infarction) Is this a current diagnosis for this admission?: Yes (3) Bilateral pleural effusion Is this a current diagnosis for this admission?: Yes (4) COPD exacerbation Is this a current diagnosis for this admission?: Yes (5) Anemia of chronic disease Is this a current diagnosis for this admission?: Yes (6) Lung cancer Qualifiers: Laterality: right Lung location: unspecified part of lung Qualified Code(s): C34.91 - Malignant neoplasm of unspecified part of right bronchus or lung Is this a current diagnosis for this admission?: Yes (7) Type II diabetes mellitus Qualifiers: Diabetes mellitus complication status: with unspecified complications Diabetes mellitus prison insulin use: without terminal computer operator use Qualified Code(s): E11.8 - Type 2 diabetes mellitus with unspecified complications; Z79.4 - terminal supervisor (current) use of insulin Is this a current diagnosis for this admission?: Yes - Time Time Spent with patient: 25-34 minutes - Plan Summary Plan Summary: For dx and tx thoracentesis. D/C IV solumedrol and begin prednisone. Cont. xopenex and D/C albuterol. Wean BIPAP. Cardio feels pt had NSTEMI. Anti-plt, statin, aceI, B-ysabel if tolerated.
--- NOTE | 2017-03-14 10:27 | Physician Advisory Note ---
Physician Advisor ProgressNote .: Pursuant to the plan for [facility], I have reviewed the medical record for this patient. Physician Advisor Statement: Possible documentation opportunities if attending agrees: 1. "anemia of neoplastic dz" [ACD has to be further specified] 2. "suspected protein-calorie malnutrition [state mild, mod, or severe] with BMI 22.4, ____[ ?appetite loss, ]" [if possible, give specifics on intake, loss of SQ fat & muscle mass, diminished hand receiving room clerk strength, & clinical importance such as (A) nutritional assessment ordered, (B) modified diet or supplements ordered, (C) additional labs ordered, (D) prolonged wound healing time, (E) delayed infxn clearance] - R.e. wt loss at least 20# - over how much time did this occur? As always, if concerned about any unstable VS or abnormal labs, please comment on them & note what doing about them, & please document each day the potential clinical problems you are concerned could occur if pt not kept in hospital for tx at this time. Thanks for your help with documentation accuracy/specificity improvement! Bambi Miller MD [facility] Physician Advisor, Fellow of Hospital Medicine
--- NOTE | 2017-03-14 10:31 | EKG REPORT ---
SEVERITY:- ABNORMAL ECG - SUPRAVENTRICULAR TACHYCARDIA ANTERIOR INFARCT, ACUTE : Confirmed by: Irlanda Bearedn MD 14-Mar-2017 10:30:19
[2017-03-14] MEDS: SITAGLIPTIN PHOSPHATE 50 MG TABLET PO SCH (13:20)
[2017-03-14] MEDS: DOCUSATE SODIUM 100 MG CAPSULE PO SCH ×2 (13:21→17:25)
[2017-03-14] MEDS: FUROSEMIDE INJ/PF 40 MG/4 ML SDV IV SCH (13:21)
[2017-03-14] MEDS: ASPIRIN 325 MG TABLET PO SCH (13:22)
[2017-03-14 13:26] LABS: FLUID TYPE PLEURAL
[2017-03-14 13:27] LABS: FLUID APPEARANCE SLIGHTLY HAZY; FLUID RBC AVERAGE 139.5; FLUID RBC DILUENT USED NONE USED; FLUID RBC DILUTION FACTOR 1; FLUID RBC SIDE 1 135; FLUID RBC SIDE 2 144; TOTAL RBC SQUARES COUNTED FLD 50
--- NOTE | 2017-03-14 15:45 | CONSULTATION REPORT E ---
Consultation Report NAME: EMMA MORRISON : 1945 AGE: 71Y DATE: 03/14/2017 335 A TO: LINDA GARCIA M.D. FROM: Requesting Physician DIAGNOSIS: LUNG CANCER. 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 She had presented with a large neck lymph node, chest pain, cough. She was started on chemotherapy with carboplatin and etoposide. She received radiation therapy as well to the right upper lobe and also right hilum. She completed radiation much earlier in 2017. She has been on chemotherapy. Her last chemotherapy treatment was about 3 weeks ago. She was admitted into the hospital with chest pain. She was found to have right pleural effusion, which she underwent pleurocentesis today. She is doing a lot better since the fluid has been removed. She states that she might have had a heart attack prior to this hospitalization. She is at her bedside. Her daughter was present in the room with her. She was able to answer all questions appropriately. PHYSICAL EXAM: GENERAL: On exam, she is an elderly woman. She is not acutely ill looking. She appears to be oxygenating comfortably with nasal cannula oxygen. LUNGS: She has good air entry bilaterally. ABDOMEN: Is soft. EXTREMITIES: There is no edema. DIAGNOSTICS: Her white count from 03/13 is 10.7, hemoglobin is 10.2, platelet count is 307. Chest x-ray done 03/13 showed there is an apparent cavity overlying the right hilum with an air-fluid level. This could be related to an infectious process or necrotic neoplasm. The remaining lung field clear. Small right pleural effusion. IMPRESSION AND PLAN: THE PATIENT IS A 71-YEAR-OLD WOMAN WITH SMALL CELL LUNG CANCER. SHE IS STATUS POST CHEMORADIATION. SHE HAS RECEIVED 4 CYCLES OF CARBOPLATIN AND ETOPOSIDE. THE LAST CYCLE WAS GIVEN 02/18/2017. SHE IS DUE FOR CYCLE #5 ON 03/18. I HAD A LONG DISCUSSION WITH HER TODAY THAT THE MOST IMPORTANT THING IS FOR HER TO RECOVER FROM THIS HOSPITALIZATION. She will omit next week's appointment and return to the office in about 2 weeks. At that, (I explained) we will evaluate and see if there is any benefits to continuing with chemotherapy, or if chemotherapy should be stopped now. I will most probably obtain further staging scans to better evaluate the right lung lesion. I will plan on seeing her back (after she is discharged) in the office, if she otherwise remains clinically stable. I thank you for this consultation, allowing me to be part of her care. DICTATING PHYSICIAN: LINDA GARCIA M.D. [id number] PHY#: [id number] ID: [id number] JOB#: [id number] ACCT: [id number] cc:LINDA GARCIA M.D. >
--- NOTE | 2017-03-14 21:33 | PDOC PROGRESS REPORT ---
Subjective Progress Note for:: 03/14/17 Subjective:: Patient seems to be doing better with gradual improvement. Pt is denying any chest arm or neck discomfort. Patient denying any PND, orthopnea. Patient denied any sustained palpitations, dizziness, syncope, near syncope. Patient denying any fever chills. Patient denying any other significant discomfort. Patient is maintaining sinus rhythm but has sinus tachycardia, cardiac enzymes are noted to have downward trend.. Review of systems: Rest review of systems negative. Medications: Medications have been reviewed. Physical Exam Vital Signs: Temp Pulse Resp BP Pulse Ox 97.6 F 111 H 20 113/57 L 94 03/14/17 20:17 03/14/17 20:17 03/14/17 20:17 03/14/17 20:17 03/14/17 20:17 Intake & Output 03/13/17 03/14/17 03/15/17 06:59 06:59 06:59 Intake Total 460 807 680 Output Total 0 500 500 Balance 460 307 180 Weight 54.9 kg 56.5 kg Exam: GENERAL: well-nourished and in no acute distress. Alert and oriented x3 HEAD: Atraumatic, normocephalic. EYES: Pupils equal round and reactive to light, extraocular movements intact, sclera anicteric, conjunctiva are normal. ENT: TMs normal, nares patent, oropharynx clear without exudates. Moist mucous membranes. No oral ulcerations or bleeding gums noted NECK: supple without lymphadenopathy. Trachea is central. No cervical or axillary lymphadenopathy noted. Carotids are 2+, JVD WNL LUNGS: Respiration seems nonlabored, no significant accessory muscle action noted. Air entry is much improved.. No wheezes rales or rhonchi noted. Mild dullness noted right base. CHEST: Palpation of the chest wall shows no significant chest wall tenderness. No other significant abnormalities noted. 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 ABDOMEN: Soft, no significant tenderness appreciated, normoactive bowel sounds. No guarding, no rebound. No rigidity noted . No masses appreciated. EXTREMITIES: Pedal pulses are 1-2+, no calf tenderness noted. No clubbing or cyanosis.trace to 1+ pedal edema noted NEUROLOGICAL: Focused neurological exam showed no significant neurologic deficit. Normal speech, no focal weakness appreciated. PSYCH: Normal mood, normal affect. Judgment and insight within normal limits. SKIN: No significant ecchymosis, rash, ulcerations or signs of pruritus noted. MUSCULOSKELETAL EXAM: No significant joint swelling noted. Results Laboratory Results: 03/13/17 04:37 03/14/17 05:19 03/13/17 03/13/17 03/13/17 04:37 04:37 18:25 WBC 10.7 H RBC 2.92 L Hgb 10.2 L Hct 30.8 L MCV 106 H MCH 35.0 H MCHC 33.1 RDW 20.0 H Plt Count 307 Seg Neutrophils % Not Reportable Lymphocytes % Not Reportable Monocytes % Not Reportable Eosinophils % Not Reportable Basophils % Not Reportable Absolute Neutrophils Not Reportable Absolute Lymphocytes Not Reportable Absolute Monocytes Not Reportable Absolute Eosinophils Not Reportable Absolute Basophils Not Reportable Carbonic Acid 1.87 H HCO3/H2CO3 Ratio 14:1 ABG pH 7.24 L ABG pCO2 62.0 H ABG pO2 99.0 ABG HCO3 26.0 ABG O2 Saturation 96 ABG Base Excess -2.6 VBG pH VBG pCO2 VBG HCO3 VBG Base Excess FiO2 35% Sodium 139.3 Potassium 4.6 Chloride 101 Carbon Dioxide 28 Anion Gap 10 BUN 13 Creatinine 0.53 Est GFR ( Amer) > 60 Est GFR (Non-Af Amer) > 60 Glucose 417 H* Calcium 9.3 Phosphorus 3.9 Magnesium 1.8 Fluid Type Fluid Source Fluid Color Fluid Appearance Fluid Viscosity Fluid WBC Fluid RBC 03/13/17 03/13/17 03/14/17 22:46 23:58 03:28 WBC RBC Hgb Hct MCV MCH MCHC RDW Plt Count Seg Neutrophils % Lymphocytes % Monocytes % Eosinophils % Basophils % Absolute Neutrophils Absolute Lymphocytes Absolute Monocytes Absolute Eosinophils Absolute Basophils Carbonic Acid HCO3/H2CO3 Ratio ABG pH ABG pCO2 ABG pO2 ABG HCO3 ABG O2 Saturation ABG Base Excess VBG pH 7.29 L 7.40 VBG pCO2 65.1 H* 52.0 VBG HCO3 30.4 31.6 VBG Base Excess 2.1 5.9 FiO2 Sodium 137.3 Potassium 4.7 Chloride 99 Carbon Dioxide 26 Anion Gap 12 BUN 21 H Creatinine 0.73 Est GFR ( Amer) > 60 Est GFR (Non-Af Amer) > 60 Glucose 513 H* Calcium 9.4 Phosphorus Magnesium Fluid Type Fluid Source Fluid Color Fluid Appearance Fluid Viscosity Fluid WBC Fluid RBC 03/14/17 03/14/17 05:19 11:45 WBC RBC Hgb Hct MCV MCH MCHC RDW Plt Count Seg Neutrophils % Lymphocytes % Monocytes % Eosinophils % Basophils % Absolute Neutrophils Absolute Lymphocytes Absolute Monocytes Absolute Eosinophils Absolute Basophils Carbonic Acid HCO3/H2CO3 Ratio ABG pH ABG pCO2 ABG pO2 ABG HCO3 ABG O2 Saturation ABG Base Excess VBG pH VBG pCO2 VBG HCO3 VBG Base Excess FiO2 Sodium 140.2 Potassium 4.5 Chloride 102 Carbon Dioxide 27 Anion Gap 11 BUN 22 H Creatinine 0.68 Est GFR ( Amer) > 60 Est GFR (Non-Af Amer) > 60 Glucose 346 H Calcium 9.5 Phosphorus Magnesium Fluid Type PLEURAL Fluid Source LUNG Fluid Color LIGHT YELLOW Fluid Appearance SLIGHTLY HAZY Fluid Viscosity LIQUID Fluid WBC 563 Fluid RBC 697 03/12/17 03/13/17 23:41 04:37 Creatine Kinase 39 CK-MB (CK-2) 1.31 Troponin I 0.176 Impressions: Chest/Abdomen CTA 03/12/17 15:58 IMPRESSION: No pulmonary emboli. Moderate free flowing right effusion in small left effusion. Volume loss in the right middle lobe. Thoracentesis Ultrasound 03/13/17 00:00 IMPRESSION: SUCCESSFUL THORACENTESIS USING ULTRASOUND GUIDANCE. Chest X-Ray 03/14/17 00:00 IMPRESSION: No pneumothorax post right thoracentesis. Assessment & Plan - Diagnosis (1) Supraventricular tachycardia Is this a current diagnosis for this admission?: Yes (2) Non-STEMI (non-ST elevated myocardial infarction) Is this a current diagnosis for this admission?: Yes (3) Troponin level elevated Is this a current diagnosis for this admission?: Yes (4) CHF (congestive heart failure) Qualifiers: Congestive heart failure type: unspecified congestive heart failure type Congestive heart failure chronicity: acute on chronic Qualified Code(s ): I50.9 - Heart failure, unspecified Is this a current diagnosis for this admission?: Yes (5) COPD exacerbation Is this a current diagnosis for this admission?: Yes (6) Hypoxemia Is this a current diagnosis for this admission?: Yes (7) Shortness of breath Is this a current diagnosis for this admission?: Yes (8) Type II diabetes mellitus Qualifiers: Diabetes mellitus complication status: with unspecified complications Diabetes mellitus intermediate accountant insulin use: without intermediate accountant use Qualified Code(s): E11.8 - Type 2 diabetes mellitus with unspecified complications; Z79.4 - terminal worker (current) use of insulin Is this a current diagnosis for this admission?: Yes - Notes Notes: supraventricular tachycardia: No recurrences. Patient has been started on digoxin, beta-ysabel. Would recommend switching to metoprolol XL in view of CHF. Non-STEMI: I suspect patient sustained non-STEMI a few weeks ago. We are just catching the tail end of the enzymes. This is evidenced by total normal CK and CK-MB. Congestive heart failure: Secondary to systolic and diastolic dysfunction, precipitated by volume overload. Recommend diuretic therapy, CADE inhibitor, beta-syabel and digoxin therapy. COPD exacerbation: Stable. Hypoxemia: Continue oxygen supplementation. Dyspnea: Combination of COPD and CHF. Patient had pleural aspiration. Pleural effusion: Feel this is mostly CHF related. Await thoracentesis results. Diabetes: Currently stable. - Time Time with patient: Greater than 35 minutes - CODE STATUS was discussed, patient remains full code. Surrogate decision-maker unchanged. Multiple medical problems were addressed. More than 50% of the time spent coordinating care, discussing management plans with involved caregivers. Management plans discussed with involved personnels. Medical decision making was of moderate to high complexity, patient's has multiple severe comorbidities. Medications reviewed and adjusted accordingly: Yes
[2017-03-14] MEDS: METOPROLOL TARTRATE 25 MG TABLET PO SCH (21:52)
[2017-03-14] MEDS: INSULIN GLARGINE,HUM.REC.ANLOG 300 UNIT/3 ML INSULN.PEN SUBCUT SCH (21:52)
[2017-03-15] MEDS: LEVALBUTEROL HCL NEB 1.25 MG/3 ML AMPUL NEB SCH ×4 (01:56→20:39)
[2017-03-15] MEDS: IPRATROPIUM BROMIDE 0.02% NEB 0.5 MG/2.5 ML AMPUL NEB SCH ×4 (01:56→20:39)
[2017-03-15] MEDS: IMIPENEM/CILASTATIN SODIUM 500 MG in NORMAL SALINE 100 ML IV SCH ×2 (02:17→08:19)
[2017-03-15] MEDS: LANSOPRAZOLE 30 MG TAB.RAP.DR PO SCH (05:10)
[2017-03-15] MEDS: INSULIN LISPRO 100 UNIT/ML 3 ML VIAL SUBCUT SCH ×3 (08:13→18:39)
[2017-03-15] MEDS: INSULIN REG, HUMAN 100 UNIT/ML 3 ML VIAL (PYX) SUBCUT PRN ×3 (08:17→21:47)
[2017-03-15] MEDS: ENOXAPARIN SODIUM INJ 40 MG/0.4 ML DISP.SYRIN SUBCUT SCH (08:18)
--- NOTE | 2017-03-15 09:29 | PDOC PROGRESS REPORT ---
Subjective Progress Note for:: 03/15/17 Subjective:: The patient felt better after thoracentesis. Cardiology evaluated patient. Thinks she might have NSTEMI. Denies night sweats, afternoon rise in temp, and hemoptysis recently. Prior (?) hemoptysis/hematemesis in past due to radiation. Breathing however is better yesterday than today. Physical Exam Vital Signs: Temp Pulse Resp BP Pulse Ox 97.6 F 99 17 128/73 H 100 03/15/17 08:01 03/15/17 08:01 03/15/17 08:01 03/15/17 08:01 03/15/17 08:01 Intake & Output 03/14/17 03/15/17 03/16/17 06:59 06:59 06:59 Intake Total 807 1122 Output Total 500 1500 Balance 307 -378 Weight 56.5 kg 56.8 kg General appearance: PRESENT: no acute distress, cooperative Head exam: PRESENT: normocephalic Eye exam: PRESENT: conjunctiva pale, EOMI Mouth exam: PRESENT: moist, neck supple Neck exam: ABSENT: JVD Respiratory exam: PRESENT: decreased breath sounds - lower lung field, rhonchi - few. ABSENT: wheezes Cardiovascular exam: PRESENT: RRR. ABSENT: gallop GI/Abdominal exam: PRESENT: soft. ABSENT: distended, tenderness Extremities exam: PRESENT: other - trace LE edema Neurological exam: PRESENT: alert, awake, oriented to situation Skin exam: PRESENT: dry, warm. ABSENT: cyanosis Results Laboratory Results: 03/13/17 04:37 03/14/17 05:19 03/13/17 03/13/17 03/13/17 04:37 04:37 18:25 WBC 10.7 H RBC 2.92 L Hgb 10.2 L Hct 30.8 L MCV 106 H MCH 35.0 H MCHC 33.1 RDW 20.0 H Plt Count 307 Seg Neutrophils % Not Reportable Lymphocytes % Not Reportable Monocytes % Not Reportable Eosinophils % Not Reportable Basophils % Not Reportable Absolute Neutrophils Not Reportable Absolute Lymphocytes Not Reportable Absolute Monocytes Not Reportable Absolute Eosinophils Not Reportable Absolute Basophils Not Reportable Carbonic Acid 1.87 H HCO3/H2CO3 Ratio 14:1 ABG pH 7.24 L ABG pCO2 62.0 H ABG pO2 99.0 ABG HCO3 26.0 ABG O2 Saturation 96 ABG Base Excess -2.6 FiO2 35% Sodium 139.3 Potassium 4.6 Chloride 101 Carbon Dioxide 28 Anion Gap 10 BUN 13 Creatinine 0.53 Est GFR ( Amer) > 60 Est GFR (Non-Af Amer) > 60 Glucose 417 H* Calcium 9.3 Phosphorus 3.9 Magnesium 1.8 Fluid Type Fluid Source Fluid Color Fluid Appearance Fluid Viscosity Fluid WBC Fluid RBC 03/14/17 11:45 WBC RBC Hgb Hct MCV MCH MCHC RDW Plt Count Seg Neutrophils % Lymphocytes % Monocytes % Eosinophils % Basophils % Absolute Neutrophils Absolute Lymphocytes Absolute Monocytes Absolute Eosinophils Absolute Basophils Carbonic Acid HCO3/H2CO3 Ratio ABG pH ABG pCO2 ABG pO2 ABG HCO3 ABG O2 Saturation ABG Base Excess FiO2 Sodium Potassium Chloride Carbon Dioxide Anion Gap BUN Creatinine Est GFR ( Amer) Est GFR (Non-Af Amer) Glucose Calcium Phosphorus Magnesium Fluid Type PLEURAL Fluid Source LUNG Fluid Color LIGHT YELLOW Fluid Appearance SLIGHTLY HAZY Fluid Viscosity LIQUID Fluid WBC 563 Fluid RBC 697 03/12/17 03/13/17 23:41 04:37 Creatine Kinase 39 CK-MB (CK-2) 1.31 Troponin I 0.176 Impressions: Chest/Abdomen CTA 03/12/17 15:58 IMPRESSION: No pulmonary emboli. Moderate free flowing right effusion in small left effusion. Volume loss in the right middle lobe. Thoracentesis Ultrasound 03/13/17 00:00 IMPRESSION: SUCCESSFUL THORACENTESIS USING ULTRASOUND GUIDANCE. Chest X-Ray 03/14/17 00:00 IMPRESSION: No pneumothorax post right thoracentesis. Assessment & Plan - Diagnosis (1) Supraventricular tachycardia Is this a current diagnosis for this admission?: Yes (2) Non-STEMI (non-ST elevated myocardial infarction) Is this a current diagnosis for this admission?: Yes (3) Bilateral pleural effusion Is this a current diagnosis for this admission?: Yes (4) COPD exacerbation Is this a current diagnosis for this admission?: Yes (5) Anemia of chronic disease Is this a current diagnosis for this admission?: Yes (6) Lung cancer Qualifiers: Laterality: right Lung location: unspecified part of lung Qualified Code(s): C34.91 - Malignant neoplasm of unspecified part of right bronchus or lung Is this a current diagnosis for this admission?: Yes (7) Type II diabetes mellitus Qualifiers: Diabetes mellitus complication status: with unspecified complications Diabetes mellitus halfway insulin use: without termite control servicer use Qualified Code(s): E11.8 - Type 2 diabetes mellitus with unspecified complications; Z79.4 - FDC (current) use of insulin Is this a current diagnosis for this admission?: Yes - Time Time Spent with patient: 25-34 minutes - Plan Summary Plan Summary: Cont. cardiac meds. Check CXR to see if w/ re-accumulation. D/C IV antibx and shift to oral. Begin PT. Cont, steroids and nebulizers.
[2017-03-15] MEDS: DOCUSATE SODIUM 100 MG CAPSULE PO SCH ×2 (10:11→18:40)
[2017-03-15] MEDS: LEVOFLOXACIN 750 MG TABLET PO SCH (10:11)
[2017-03-15] MEDS: ASPIRIN 325 MG TABLET PO SCH (10:12)
[2017-03-15] MEDS: LISINOPRIL 5 MG TABLET PO SCH (10:12)
[2017-03-15] MEDS: SITAGLIPTIN PHOSPHATE 50 MG TABLET PO SCH (10:12)
[2017-03-15] MEDS: METOPROLOL TARTRATE 25 MG TABLET PO SCH ×2 (10:12→21:47)
[2017-03-15] MEDS: FUROSEMIDE INJ/PF 40 MG/4 ML SDV IV SCH (10:13)
[2017-03-15] MEDS: PREDNISONE 20 MG TABLET PO SCH (10:13)
[2017-03-15] MEDS: CLINDAMYCIN HCL 150 MG CAPSULE PO SCH ×2 (13:36→18:40)
[2017-03-15] MEDS: INSULIN GLARGINE,HUM.REC.ANLOG 300 UNIT/3 ML INSULN.PEN SUBCUT SCH (21:47)
[2017-03-16] MEDS: CLINDAMYCIN HCL 150 MG CAPSULE PO SCH ×3 (00:11→11:01)
[2017-03-16] MEDS: LEVALBUTEROL HCL NEB 1.25 MG/3 ML AMPUL NEB SCH ×2 (02:31→08:21)
[2017-03-16] MEDS: IPRATROPIUM BROMIDE 0.02% NEB 0.5 MG/2.5 ML AMPUL NEB SCH ×2 (02:31→08:21)
[2017-03-16] MEDS: LANSOPRAZOLE 30 MG TAB.RAP.DR PO SCH (05:25)
[2017-03-16] MEDS: ENOXAPARIN SODIUM INJ 40 MG/0.4 ML DISP.SYRIN SUBCUT SCH (10:57)
[2017-03-16] MEDS: INSULIN LISPRO 100 UNIT/ML 3 ML VIAL SUBCUT SCH (10:57)
[2017-03-16] MEDS: METOPROLOL TARTRATE 25 MG TABLET PO SCH (10:58)
[2017-03-16] MEDS: DOCUSATE SODIUM 100 MG CAPSULE PO SCH (10:59)
[2017-03-16] MEDS: SITAGLIPTIN PHOSPHATE 50 MG TABLET PO SCH (10:59)
[2017-03-16] MEDS: PREDNISONE 20 MG TABLET PO SCH (10:59)
[2017-03-16] MEDS: LEVOFLOXACIN 750 MG TABLET PO SCH (10:59)
[2017-03-16] MEDS: FUROSEMIDE INJ/PF 40 MG/4 ML SDV IV SCH (11:00)
[2017-03-16] MEDS: LISINOPRIL 5 MG TABLET PO SCH (11:00)
[2017-03-16] MEDS: ASPIRIN 325 MG TABLET PO SCH (11:00)
[2017-03-16 12:55] VITALS: BP 125/69
--- NOTE | 2017-03-16 13:04 | PDOC DISCHARGE SUMMARY ---
General - Admit/Disc Date/PCP Admission Date/Primary Care Provider: 03/12/17 18:03 LINDA GARCIA MD Discharge Date: 03/16/17 - Discharge Diagnosis (1) Pneumonia Is this a current diagnosis for this admission?: Yes (2) Supraventricular tachycardia Is this a current diagnosis for this admission?: Yes (3) Non-STEMI (non-ST elevated myocardial infarction) Is this a current diagnosis for this admission?: Yes (4) CHF (congestive heart failure) Is this a current diagnosis for this admission?: Yes (5) Bilateral pleural effusion Is this a current diagnosis for this admission?: Yes (6) COPD exacerbation Is this a current diagnosis for this admission?: Yes (7) Anemia of chronic disease Is this a current diagnosis for this admission?: Yes (8) Lung cancer Is this a current diagnosis for this admission?: Yes (9) Type II diabetes mellitus Is this a current diagnosis for this admission?: Yes - Additional Information Resuscitation Status: Full Code Discharge Diet: Cardiac - low fat low salt., Diabetic - no concentrated sweets Discharge Activity: Activity As Tolerated, Balance Activity w/Rest, Slowly Increase Activity Home Medications: Colesevelam HCl [Welchol 625 mg Tablet] 3 tab PO DAILY 03/12/17 Dronabinol [Marinol 2.5 mg Capsule] 2.5 mg PO BID 03/12/17 Fenofibrate Nanocrystallized [Fenofibrate] 145 mg PO QHS 03/12/17 Insulin Aspart [Novolog Flexpen] 8 units SQ MEALS 03/12/17 Iron Polysaccharide Complex [Ferrex 150] 150 mg PO DAILY 03/12/17 Losartan/Hydrochlorothiazide [Hyzaar 50-12.5 Tablet] 1 tab PO DAILY 03/12/17 Sitagliptin Phosphate [Januvia] 100 mg PO DAILY 03/12/17 Umeclidinium Brm/Vilanterol Tr [Anoro Ellipta 62.5-25 Mcg INH] 1 puff IH DAILY 03/12/17 Aspirin [Aspirin 325 mg Tablet] 325 mg PO DAILY tablet 03/16/17 Clindamycin HCl [Cleocin 150 mg Capsule] 300 mg PO Q6 #40 capsule 03/16/17 Ipratropium [place] [Atrovent 0.02% Neb 0.5 mg/2.5 ml Ampul] 0.5 mg NEB RTQ6 # 120 vial.neb 03/16/17 Levalbuterol HCl [Xopenex Neb 1.25 mg/3 ml Ampul] 1.25 mg NEB RTQ6 #120 vial.neb 03/16/17 Levofloxacin [Levaquin 750 mg Tablet] 750 mg PO DAILY #10 tablet 03/16/17 Metoprolol Tartrate [Lopressor 25 mg Tablet] 25 mg PO Q12 #60 tablet 03/16/17 Prednisone [Sterapred Ds] 1 pkg PO ASDIR PRN 12 Days 03/16/17 Additional Information: Follow up pleural fluid culture as out-patient w/ primary physician or Dr. Garcia History of Present Illness Patient complains of: Shortness of breath History of Present Illness: EMMA MORRISON is a 71 year old female, with stage III lung cancer, COPD brought to the emergency room because of shortness of breath and wheezing upon waking up earlier this morning. The patient was doing well last weekend, yesterday however she started to develop confusion as noticed by the family. The patient has chronic cough attributed to the lung cancer. This is associated with brownish phlegm. Patient had an episode of pleurisy about a week ago that resolved with Ativan and she attribute it to anxiety. There is no definite chills or fever. Patient occasionally has symptoms soreness and throat but a lot of it is dryness. Patient had intermittent diarrhea as well. Patient started to develop wheezing as stated above where she will take her nebulizers providing partial improvement, however the symptom persisted. She called her allergies will advise her to come to the emergency room for evaluation. In the emergency room she was found to have pleural effusion, COPD exacerbation and given nebulizers which her shortness of breath improved and she was referred for admission. Hospital Course Hospital Course: The patient was admitted to telemetry. Patient started on IV steroids, IV diuretics, RTC nebulizers and IV antibiotics. Supplemental O2 was given. Cardiac enzymes were obtained and were abnormal but trending down. Cardiology was consulted. 2decho showed slightly low EF. Patient improved but course complicated by SVT and respiratory failure requiring BIPAP. Patient given IV cardizem and transfered to stepdown unit. Cardiology made impression of CHF, and recent NSTEMI. Patient placed on Jovan-I, b-dami and asa. Pt improved. Patient then went for therapeautic and diagnostic thoracentesis. 600ml of pleural fluid obtained. Pt successfully weaned off BIPAP. Culture is pending, cytology negative for malignancy. Follow-up CXR showed atelectasis. Incentive spirometry was instituted. Pt improved symptomatically. Cardiology cleared patient to be D/C. The rest of hospital stay was unremarkable. Physical Exam Vital Signs: Temp Pulse Resp BP Pulse Ox 98.8 F 98 20 126/62 H 98 03/16/17 12:27 03/16/17 12:27 03/16/17 12:27 03/16/17 12:27 03/16/17 12:27 Intake & Output 03/15/17 03/16/17 03/17/17 06:59 06:59 06:59 Intake Total 1122 3466 390 Output Total 1500 Balance -378 3466 390 Weight 56.8 kg 55.4 kg General appearance: PRESENT: no acute distress, cooperative Head exam: PRESENT: normocephalic Eye exam: PRESENT: EOMI Mouth exam: PRESENT: moist, neck supple Neck exam: ABSENT: JVD Respiratory exam: PRESENT: decreased breath sounds - lung bases, unlabored. ABSENT: rhonchi, wheezes Cardiovascular exam: PRESENT: RRR. ABSENT: gallop GI/Abdominal exam: PRESENT: normal bowel sounds, soft. ABSENT: distended, tenderness Extremities exam: ABSENT: pedal edema Neurological exam: PRESENT: alert, awake, oriented to person, oriented to place , oriented to time, oriented to situation Skin exam: PRESENT: dry, warm. ABSENT: cyanosis Results Laboratory Results: 03/13/17 04:37 03/14/17 05:19 03/14/17 03/14/17 11:45 11:45 Fluid Total Protein 2.2 Fluid LDH 122 03/12/17 03/13/17 23:41 04:37 Creatine Kinase 39 CK-MB (CK-2) 1.31 Troponin I 0.176 Impressions: Chest/Abdomen CTA 03/12/17 15:58 IMPRESSION: No pulmonary emboli. Moderate free flowing right effusion in small left effusion. Volume loss in the right middle lobe. Thoracentesis Ultrasound 03/13/17 00:00 IMPRESSION: SUCCESSFUL THORACENTESIS USING ULTRASOUND GUIDANCE. Chest X-Ray 03/15/17 00:00 IMPRESSION: MINIMAL RIGHT PLEURAL EFFUSION. NO PNEUMOTHORAX. PERSISTENT PARTIAL COLLAPSE OF THE RIGHT MIDDLE LOBE. Qualifiers PATEINT BEING DISCHARGED WITH ANY OF THE FOLLOWING DIAGNOSIS?: Heart Failure, AK AK Pt being discharged on Aspirin therapy?: Yes AK Pt being discharged on Statins?: Yes AK Pt discharged ACEI/ARBS?: Yes HF Pt being discharged on ACEI for LVEF less than 40%?: No Reason(s) for not prescribing ACEI:: Not indicated HF Pt being discharged on ARBS for LVEF less than 40%?: Yes HF Pt with Afib discharged with Warfarin?: No Reason(s) for not prescribing Warfarin:: Not indicated - no afib HF Pt discharged on evidence-based Beta Dami:: Yes Plan Discharge Plan: Follow up w/ Primary MD in 1 week, Dr. Garcia in 1 week, Dr. Hester in 1 to 2 weeks Time Spent: Less than 30 Minutes
--- NOTE | 2017-03-16 15:15 | PDOC PROGRESS REPORT ---
Subjective Progress Note for:: 03/15/17 Subjective:: Patient seems to be doing better with gradual but progressive improvement. Pt is denying any chest arm or neck discomfort. Patient denying any PND, orthopnea. Patient denied any sustained palpitations, dizziness, syncope, near syncope. Patient denying any fever chills. Patient denying any other significant discomfort. Patient still has shortness of breath. Patient is maintaining sinus rhythm. Review of systems: Rest review of systems negative. Medications: Medications have been reviewed. Physical Exam Vital Signs: Temp Pulse Resp BP Pulse Ox 98.0 F 93 20 114/54 L 94 03/15/17 19:32 03/15/17 20:39 03/15/17 20:39 03/15/17 19:32 03/15/17 20:39 Intake & Output 03/14/17 03/15/17 03/16/17 06:59 06:59 06:59 Intake Total 807 1122 2090 Output Total 500 1500 Balance 307 -378 2090 Weight 56.5 kg 56.8 kg Exam: GENERAL: well-nourished and in no acute distress. Alert and oriented x3 HEAD: Atraumatic, normocephalic. 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 EYES: Pupils equal round and reactive to light, extraocular movements intact, sclera anicteric, conjunctiva are normal. ENT: TMs normal, nares patent, oropharynx clear without exudates. Moist mucous membranes. No oral ulcerations or bleeding gums noted NECK: supple without lymphadenopathy. Trachea is central. No cervical or axillary lymphadenopathy noted. Carotids are 2+, JVD WNL LUNGS: Respiration seems nonlabored, no significant accessory muscle action noted. Mild diminished breath sounds noted right base but otherwise clear. CHEST: Palpation of the chest wall shows no significant chest wall tenderness. No other significant abnormalities noted. 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 ABDOMEN: Soft, no significant tenderness appreciated, normoactive bowel sounds. No guarding, no rebound. No rigidity noted . No masses appreciated. EXTREMITIES: Pedal pulses are 1-2+, no calf tenderness noted. No clubbing or cyanosis. 1+ pedal edema noted NEUROLOGICAL: Focused neurological exam showed no significant neurologic deficit. Normal speech, no focal weakness appreciated. PSYCH: Normal mood, normal affect. Judgment and insight within normal limits. SKIN: No significant ecchymosis, rash, ulcerations or signs of pruritus noted. MUSCULOSKELETAL EXAM: No significant joint swelling noted. Results Laboratory Results: 03/13/17 04:37 03/14/17 05:19 03/14/17 03/14/17 11:45 11:45 Fluid Total Protein 2.2 Fluid LDH 122 03/12/17 03/13/17 23:41 04:37 Creatine Kinase 39 CK-MB (CK-2) 1.31 Troponin I 0.176 Impressions: Chest/Abdomen CTA 03/12/17 15:58 IMPRESSION: No pulmonary emboli. Moderate free flowing right effusion in small left effusion. Volume loss in the right middle lobe. Thoracentesis Ultrasound 03/13/17 00:00 IMPRESSION: SUCCESSFUL THORACENTESIS USING ULTRASOUND GUIDANCE. Chest X-Ray 03/15/17 00:00 IMPRESSION: MINIMAL RIGHT PLEURAL EFFUSION. NO PNEUMOTHORAX. PERSISTENT PARTIAL COLLAPSE OF THE RIGHT MIDDLE LOBE. Assessment & Plan - Diagnosis (1) Supraventricular tachycardia Is this a current diagnosis for this admission?: Yes (2) Non-STEMI (non-ST elevated myocardial infarction) Is this a current diagnosis for this admission?: Yes (3) Troponin level elevated Is this a current diagnosis for this admission?: Yes (4) CHF (congestive heart failure) Qualifiers: Congestive heart failure type: unspecified congestive heart failure type Congestive heart failure chronicity: acute on chronic Qualified Code(s ): I50.9 - Heart failure, unspecified Is this a current diagnosis for this admission?: Yes (5) COPD exacerbation Is this a current diagnosis for this admission?: Yes (6) Hypoxemia Is this a current diagnosis for this admission?: Yes (7) Shortness of breath Is this a current diagnosis for this admission?: Yes (8) Type II diabetes mellitus Qualifiers: Diabetes mellitus complication status: with unspecified complications Diabetes mellitus terminal system operator insulin use: without fdc use Qualified Code(s): E11.8 - Type 2 diabetes mellitus with unspecified complications; Z79.4 - ad terminal makeup operator (current) use of insulin Is this a current diagnosis for this admission?: Yes - Notes Notes: Supraventricular tachycardia: This has resolved. Patient noted to have mild intermittent sinus tachycardia. Patient medication were reviewed. Non-STEMI: It is my opinion that patient had a myocardial infarction approximately 2-3 weeks prior to admission. We are just catching the tail end of troponin I elevation. Have recommended a stress test but feel that this is best performed as an outpatient since patient does have significant ongoing comorbid conditions. Patient not having any ongoing chest pain. Should patient have ongoing chest pain or recurrence of significant dysrhythmia, then cardiac catheterization would need to be considered. Coronary artery disease: Recommend high potency statin therapy, aspirin therapy , beta ysabel, CADE inhibitor therapy. CHF: Seems fairly compensated. Could be switched to p.o. diuretics. Malignancy: Patient now has CHF and cardiomyopathy therefore antineoplastic therapy may need to be adjusted. Pleural effusion: Possibly related to CHF. This is based on findings on thoracentesis fluid. COPD exacerbation: Currently stable. Lungs findings much improved. Continue bronchodilator therapy. Coronary artery disease: Believe this diagnosis can be made because of wall motion abnormality and LV systolic dysfunction. Patient to have a stress test at a later date. - Time Time with patient: Greater than 35 minutes - CODE STATUS was discussed, patient remains full code. Surrogate decision-maker unchanged. Multiple medical problems were addressed. More than 50% of the time spent coordinating care, discussing management plans with involved caregivers. Management plans discussed with involved personnels. Medical decision making was of moderate to high complexity, patient's has multiple severe comorbidities. Medications reviewed and adjusted accordingly: Yes
--- NOTE | 2017-03-16 15:19 | PDOC PROGRESS REPORT ---
Subjective Progress Note for:: 03/16/17 Subjective:: Patient seems to be doing better. I am told that she is being discharged today by the hospitalist. She seems to be stable for discharge. Pt is denying any chest arm or neck discomfort. Patient denying any PND, orthopnea. Patient denied any sustained palpitations, dizziness, syncope, near syncope. Patient denying any fever chills. Patient denying any other significant discomfort. Patient is maintaining sinus rhythm. Review of systems: Rest review of systems negative. Medications: Medications have been reviewed. Physical Exam Vital Signs: Temp Pulse Resp BP Pulse Ox 98.8 F 98 20 126/62 H 98 03/16/17 12:27 03/16/17 12:27 03/16/17 12:27 03/16/17 12:27 03/16/17 12:27 Intake & Output 03/15/17 03/16/17 03/17/17 06:59 06:59 06:59 Intake Total 1122 3466 390 Output Total 1500 Balance -378 3466 390 Weight 56.8 kg 55.4 kg Exam: GENERAL: well-nourished and in no acute distress. Alert and oriented x3 HEAD: Atraumatic, normocephalic. Alopecia noted. EYES: Pupils equal round and reactive to light, extraocular movements intact, sclera anicteric, conjunctiva are normal. ENT: TMs normal, nares patent, oropharynx clear without exudates. Moist mucous membranes. No oral ulcerations or bleeding gums noted NECK: supple without lymphadenopathy. Trachea is central. No cervical or axillary lymphadenopathy noted. Carotids are 2+, JVD WNL LUNGS: Respiration seems nonlabored, no significant accessory muscle action noted. Breath sounds clear to auscultation bilaterally and equal noted. No wheezes rales or rhonchi noted. No significant dullness noted on percussion. CHEST: Palpation of the chest wall shows no significant chest wall tenderness. No other significant abnormalities noted. 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 ABDOMEN: Soft, no significant tenderness appreciated, normoactive bowel sounds. No guarding, no rebound. No rigidity noted . No masses appreciated. EXTREMITIES: Pedal pulses are 1-2+, no calf tenderness noted. No clubbing or cyanosis.trace to 1+ pedal edema noted NEUROLOGICAL: Focused neurological exam showed no significant neurologic deficit. Normal speech, no focal weakness appreciated. PSYCH: Normal mood, normal affect. Judgment and insight within normal limits. SKIN: No significant ecchymosis, rash, ulcerations or signs of pruritus noted. MUSCULOSKELETAL EXAM: No significant joint swelling noted. Results Laboratory Results: 03/13/17 04:37 03/14/17 05:19 03/12/17 03/13/17 23:41 04:37 Creatine Kinase 39 CK-MB (CK-2) 1.31 Troponin I 0.176 Impressions: Chest/Abdomen CTA 03/12/17 15:58 IMPRESSION: No pulmonary emboli. Moderate free flowing right effusion in small left effusion. Volume loss in the right middle lobe. Thoracentesis Ultrasound 03/13/17 00:00 IMPRESSION: SUCCESSFUL THORACENTESIS USING ULTRASOUND GUIDANCE. Chest X-Ray 03/15/17 00:00 IMPRESSION: MINIMAL RIGHT PLEURAL EFFUSION. NO PNEUMOTHORAX. PERSISTENT PARTIAL COLLAPSE OF THE RIGHT MIDDLE LOBE. Assessment & Plan - Diagnosis (1) Supraventricular tachycardia Is this a current diagnosis for this admission?: Yes (2) Non-STEMI (non-ST elevated myocardial infarction) Is this a current diagnosis for this admission?: Yes (3) Troponin level elevated Is this a current diagnosis for this admission?: Yes (4) CHF (congestive heart failure) Qualifiers: Congestive heart failure type: unspecified congestive heart failure type Congestive heart failure chronicity: acute on chronic Qualified Code(s ): I50.9 - Heart failure, unspecified Is this a current diagnosis for this admission?: Yes (5) COPD exacerbation Is this a current diagnosis for this admission?: Yes (6) Hypoxemia Is this a current diagnosis for this admission?: Yes (7) Shortness of breath Is this a current diagnosis for this admission?: Yes (8) Type II diabetes mellitus Qualifiers: Diabetes mellitus complication status: with unspecified complications Diabetes mellitus half-way insulin use: without moth exterminator use Qualified Code(s): E11.8 - Type 2 diabetes mellitus with unspecified complications; Z79.4 - care home (current) use of insulin Is this a current diagnosis for this admission?: Yes - Notes Notes: Supraventricular tachycardia: Resolved. Continue beta-ysabel. Will consider adding digoxin as an outpatient. Non-STEMI: Patient had a stable course. Will consider scheduling a stress test , pharmacologic as an outpatient Coronary artery disease: Continue high potency statin therapy, aspirin therapy, beta ysabel, CADE inhibitor therapy as outpatient. CHF: Compensated. Continue Lasix at 40 mg a day Malignancy: Patient should follow-up with oncology. Continue neoplastic therapy may need to be modified based on new diagnosis of CHF and CAD. Pleural effusion: Possibly related to CHF. Continue diuretic therapy COPD exacerbation: Stabilized and stable. Coronary artery disease: Symptomatically stable. Patient has not seen a corporate webmaster in many years and prefers to follow-up with me. This will be scheduled. - Time Time with patient: 15-25 minutes - CODE STATUS was discussed, patient remains full code. Surrogate decision-maker unchanged. Multiple medical problems were addressed. More than 50% of the time spent coordinating care, discussing management plans with involved caregivers. Management plans discussed with involved personnels. Medical decision making was of moderate to high complexity , patient's has multiple severe comorbidities. Medications reviewed and adjusted accordingly: Yes
== END 2017-03-16 13:17 | disposition home health service (06) | DRG 190 ==
LOC: ER 11:59 → EH 16:07 → UNDOADMIN 16:07 → EH 18:03 → 4N 20:45 → 3S 03-13 18:50
PROC: 0W993ZX Drainage of Right Pleural Cavity, Percutaneous Approach, Diagnostic (ICD-10-PCS; principal; 2017-03-12)
PROC: 3E0F73Z Introduction of Anti-inflammatory into Respiratory Tract, Via Natural or Artificial Opening (ICD-10-PCS; 2017-03-12)
PROC: 5A09457 Assistance with Respiratory Ventilation, 24-96 Consecutive Hours, Continuous Positive Airway Pressure (ICD-10-PCS; 2017-03-13)
DX: J44.1 Chronic obstructive pulmonary disease with (acute) exacerbation (principal); I21.4 Non-ST elevation (NSTEMI) myocardial infarction; I50.43 Acute on chronic combined systolic (congestive) and diastolic (congestive) heart failure; I47.1 Supraventricular tachycardia; C34.91 Malignant neoplasm of unspecified part of right bronchus or lung; J90 Pleural effusion, not elsewhere classified; I42.9 Cardiomyopathy, unspecified; I11.0 Hypertensive heart disease with heart failure; D63.8 Anemia in other chronic diseases classified elsewhere; E11.65 Type 2 diabetes mellitus with hyperglycemia; I25.10 Atherosclerotic heart disease of native coronary artery without angina pectoris; R09.02 Hypoxemia; Z79.82 Long term (current) use of aspirin; Z79.4 Long term (current) use of insulin; Z79.899 Other long term (current) drug therapy; Z90.49 Acquired absence of other specified parts of digestive tract; Z90.710 Acquired absence of both cervix and uterus; Z96.619 Presence of unspecified artificial shoulder joint; Z92.3 Personal history of irradiation; Z86.73 Personal history of transient ischemic attack (TIA), and cerebral infarction without residual deficits; Z87.891 Personal history of nicotine dependence; Z82.49 Family history of ischemic heart disease and other diseases of the circulatory system; Z80.3 Family history of malignant neoplasm of breast; Z80.1 Family history of malignant neoplasm of trachea, bronchus and lung
CPT/HCPCS: 32555; 36415; 36600; 71010; 71020; 71275; 80048; 81001; 82550; 82553; 82803; 82962; 83605; 83615; 83735; 83880; 84100; 84157; 84443; 84484; 85025; 85610; 85730; 87040; 87070; 87075; 87086; 87088; 87205; 88305; 88341; 88342; 89050; 93005; 93010; 93306; 94640; 94660; 96374; 99285; J0743; J1650; J1815; J1940; J2060; J2930; J3490; J7030; J7512; J7620

== ENCOUNTER → 2017-04-07 | Outpatient (CLI) | payer MEDICARE, MEDICAID ==
--- NOTE | 2017-04-08 12:25 | RADIOLOGY REPORT (SQ) ---
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 There is a report of a PET scan from another facility dated 11/02/2016. RADIONUCLIDE AND DOSE: 12.0 mCi F18 FDG The route of agent administration: Intravenous FASTING BLOOD SUGAR: 72 mg/dl CONTRAST TYPE AND DOSE: No CT contrast given. TECHNIQUE: Blood glucose level was verified. Above dose of FDG was injected intravenously. 2-D seg mented attenuation correction images were obtained from the base of the skull to the midthighs. Nonc ontrast CT images were obtained for attenuation correction and fusion with emission images. CT image s were performed without oral or intravenous contrast and are not sensitive for parenchymal lesions. A series of overlapping emission PET images were obtained. Images reviewed and manipulated at [facility] work station by the radiologist. Images stored on PACS. LIMITATIONS: None. FINDINGS: HEAD AND NECK: No areas of abnormal metabolic activity in the soft tissues of the head and neck. CHEST: No areas of abnormal metabolic activity in the chest. ABDOMEN AND PELVIS: No areas of abnormal metabolic activity in the abdomen or pelvis. Expected physi ologic activity is present in the genitourinary system and bowel. A focal area of increased activity in the left side of the pelvis corresponds to the distal left ureter. PROXIMAL LOWER EXTREMITIES: No areas of abnormal metabolic activity in the soft tissues of the lower extremities. BONES: No abnormal metabolic activity in the visualized skeleton. ADDITIONAL CT FINDINGS: No additional significant findings on the noncontrast CT images. OTHER: No other significant findings. IMPRESSION: GENERALLY UNREMARKABLE PET SCAN. SPECIFICALLY NO ABNORMAL ACTIVITY IN THE CHEST AND NO SIGNIFICANT FINDINGS ON CT. NO EVIDENCE OF RESIDUAL OR RECURRENT DISEASE OR METASTATIC INVOLVEMENT. TECHNICAL DOCUMENTATION: JOB ID: [id number]- All Rights Reserved
== END ==
LOC: RAD 16:34
PROVIDERS: ATTEND Internal Medicine Medical Oncology
DX: C34.90 Malignant neoplasm of unspecified part of unspecified bronchus or lung (principal)
CPT/HCPCS: 78815; A9552

== ENCOUNTER → 2017-07-05 | Outpatient (CLI) | payer MEDICARE, MEDICAID ==
--- NOTE | 2017-07-05 15:28 | RADIOLOGY REPORT (SQ) ---
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 The route of agent administration: Intravenous. ADDITIONAL DRUGS AND DOSES: None. TECHNIQUE: Routine delayed images at 3 HOURS post radionuclide injection acquired of the bony skelet on including anterior and posterior whole-body projections and additional focused images as needed. LIMITATIONS: None. FINDINGS: BONES: There is mild increased uptake in the shoulders and knees. There is mild increased uptake in the region of ethmoid sinuses. There is focal increased uptake in the region of the right pedicle at L4. KIDNEYS: Symmetric excretion without obstruction. OTHER: No other significant finding. IMPRESSION: There is focal increased uptake in the region of the right pedicle at L4. Cannot exclud e an isolated metastasis. Remaining areas of uptake are felt to be degenerative or perhaps related t o sinus disease. COMMENT: Quality measure 147: No available imaging studies for comparison. TECHNICAL DOCUMENTATION: JOB ID: [id number] [employer]- All Rights Reserved
== END ==
LOC: RAD 09:52
PROVIDERS: ATTEND Radiology Radiation Oncology
DX: C34.11 Malignant neoplasm of upper lobe, right bronchus or lung (principal); C77.1 Secondary and unspecified malignant neoplasm of intrathoracic lymph nodes; R07.82 Intercostal pain
CPT/HCPCS: 78306; A9561; Q9969

== ENCOUNTER 2017-07-15 09:56 | Emergency (ER) | payer MEDICARE, MEDICAID ==
[2017-07-15] MEDS ORDERED: LIDOCAINE 5% (700 MG) TRANSDERMAL ADH..PATCH TP ONE (10:49)
--- NOTE | 2017-07-15 10:50 | ER Document Report ---
ED GI/ - General Chief Complaint: Abdominal Pain Stated Complaint: ABDOMINAL PAIN Time Seen by Provider: 07/15/17 10:26 Mode of Arrival: Ambulatory Information source: Patient Notes: Patient presents complaining of right upper quadrant abdominal pain, right lower anterior chest wall pain for the past 3-1/2 weeks. Patient denies any urinary symptoms, nausea, vomiting or diarrhea. Patient reports mild productive cough. Patient denies any fever. Patient reports previous history of lung cancer in which she was treated with radiation and chemotherapy. Patient states her primary doctor suspected that she was having pain due to scar tissue from her radiation treatment of her cancer. TRAVEL OUTSIDE OF THE [place] IN LAST 30 DAYS: No - HPI Patient complains to provider of: Abdominal pain Onset: Other - 3.5 weeks Timing/Duration: Persistent Quality of pain: Sharp Pain Level: 4 Location: RUQ Vaginal bleeding (Compared to normal period): None Associated symptoms: Chest pain - Right anterior lower rib tenderness. denies: Dysuria, Fever, Loss of appetite, Nausea, Urinary hesitancy, Urinary frequency, Vomiting Exacerbated by: Movement Relieved by: Denies Similar symptoms previously: No Recently seen / treated by doctor: No - Related Data Allergies/Adverse Reactions: No Known Allergies Allergy (Verified 07/15/17 10:03) Past Medical History - General Information source: Patient - Social History Smoking Status: Never Smoker Frequency of alcohol use: None Drug Abuse: None Family History: Reviewed & Not Pertinent Patient has suicidal ideation: No - Past Medical History Cardiac Medical History: Reports: Hx Hypertension Denies: Hx Congestive Heart Failure, Hx Coronary Artery Disease, Hx Heart Attack Pulmonary Medical History: Reports: Hx COPD Endocrine Medical History: Reports: Hx Diabetes Mellitus Type 2 Renal/ Medical History: Denies: Hx Peritoneal Dialysis Malignancy Medical History: Reports: Hx Lung Cancer Past Surgical History: Reports: Hx Adenoidectomy, Hx Appendectomy, Hx Cholecystectomy, Hx Tonsillectomy Review of Systems - Review of Systems Constitutional: No symptoms reported. denies: Fever, Recent illness EENT: No symptoms reported Cardiovascular: Chest pain - Right anterior lower rib pain Respiratory: Cough, Sputum. denies: Short of breath Gastrointestinal: Abdominal pain. denies: Nausea, Vomiting Genitourinary: No symptoms reported. denies: Dysuria, Flank pain Female Genitourinary: No symptoms reported Musculoskeletal: No symptoms reported Skin: No symptoms reported Hematologic/Lymphatic: No symptoms reported Neurological/Psychological: No symptoms reported. denies: Headaches Physical Exam - Vital signs Vitals: Temp Pulse Resp BP Pulse Ox 97.9 F 99 16 144/78 H 98 07/15/17 10:06 07/15/17 10:06 07/15/17 10:06 07/15/17 10:06 07/15/17 10:06 - General General appearance: Appears well, Alert In distress: None - HEENT Head: Normocephalic, Atraumatic Eyes: Normal Conjunctiva: Normal Nasal: Normal Mouth/Lips: Normal Mucous membranes: Normal Neck: Normal, Supple. No: Lymphadenopathy - Respiratory Respiratory status: No respiratory distress Chest status: Nontender Breath sounds: Wheezing Chest palpation: Normal. No: Tender - Cardiovascular Rhythm: Regular Heart sounds: S1 appreciated, S2 appreciated Murmur: No - Abdominal Inspection: Normal Distension: No distension Bowel sounds: Normal Tenderness: Tender - RUQ, Guarding Organomegaly: No organomegaly - Back Back: Normal, Nontender. No: CVA tenderness, Vertebra tenderness - Extremities General upper extremity: Normal inspection, Normal ROM General lower extremity: Normal inspection, Normal ROM - Neurological Neuro grossly intact: Yes Cognition: Normal Corder Coma Scale Eye Opening: Spontaneous Corder Coma Scale Verbal: Oriented Pardeep Coma Scale Motor: Obeys Commands Pardeep Coma Scale Total: 15 - Psychological Associated symptoms: Normal affect, Normal mood - Skin Skin Temperature: Warm Skin Moisture: Dry Skin Color: Normal Course - Re-evaluation Re-evalutation: 07/15/17 11:[address] Oliveira regarding patient presentation and exam findings. Agrees with plan for CT imaging of abdominal tenderness. EKG reviewed per dr Oliveira 07/15/17 15:39 Patient reports that right upper quadrant pain had returned but does not want to take any narcotic pain medication as she drove herself here today. Patient states that she just wants to know what is going on and causing her pain symptoms today. Consulted with Dr. Márquez regarding patient presentation, reviewed patient's diagnostic test results as well as her CT scan report. Advises treating with Lidoderm patches as well as gabapentin. Patient is currently already prescribed gabapentin. 07/15/17 15:41 - Vital Signs Vital signs: Temp Pulse Resp BP Pulse Ox 98.7 F 86 16 148/76 H 98 07/15/17 16:18 07/15/17 16:18 07/15/17 16:18 07/15/17 16:18 07/15/17 16:18 - Laboratory Result Diagrams: 07/15/17 10:50 07/15/17 10:50 Laboratory results interpreted by me: 07/15/17 10:50 Carbon Dioxide 33 H Glucose 170 H Direct Bilirubin 0.5 H Labs- Entire Visit 07/15/17 07/15/17 07/15/17 10:50 10:50 10:50 WBC 5.3 RBC 4.12 Hgb 13.5 Hct 37.9 MCV 92 MCH 32.7 MCHC 35.5 RDW 14.0 Plt Count 268 Seg Neutrophils % 72.6 Lymphocytes % 15.3 Monocytes % 7.6 Eosinophils % 3.4 Basophils % 1.1 Absolute Neutrophils 3.8 Absolute Lymphocytes 0.8 Absolute Monocytes 0.4 Absolute Eosinophils 0.2 Absolute Basophils 0.1 Sodium 142.6 Potassium 4.0 Chloride 102 Carbon Dioxide 33 H Anion Gap 8 BUN 16 Creatinine 0.69 Est GFR ( Amer) > 60 Est GFR (Non-Af Amer) > 60 Glucose 170 H Calcium 9.9 Magnesium 1.7 Total Bilirubin 0.5 Direct Bilirubin 0.5 H Indirect Bilirubin Not Reportable Neonat Total Bilirubin Not Reportable AST 17 ALT 16 Alkaline Phosphatase 61 Creatine Kinase 70 CK-MB (CK-2) 2.07 Troponin I < 0.012 Total Protein 6.8 Albumin 4.3 Lipase 46.5 Urine Color Urine Appearance Urine pH Ur Specific [place] Urine Protein Urine Glucose (UA) Urine Ketones Urine Blood Urine Nitrite Urine Bilirubin Urine Urobilinogen Ur Leukocyte Esterase Urine WBC (Auto) Urine RBC (Auto) Squamous Epi Cells Auto Calcium Oxalate Cr Auto Amorphous Sediment Auto Urine Mucus (Auto) Urine Ascorbic Acid 07/15/17 11:30 WBC RBC Hgb Hct MCV MCH MCHC RDW Plt Count Seg Neutrophils % Lymphocytes % Monocytes % Eosinophils % Basophils % Absolute Neutrophils Absolute Lymphocytes Absolute Monocytes Absolute Eosinophils Absolute Basophils Sodium Potassium Chloride Carbon Dioxide Anion Gap BUN Creatinine Est GFR ( Amer) Est GFR (Non-Af Amer) Glucose Calcium Magnesium Total Bilirubin Direct Bilirubin Indirect Bilirubin Neonat Total Bilirubin AST ALT Alkaline Phosphatase Creatine Kinase CK-MB (CK-2) Troponin I Total Protein Albumin Lipase Urine Color YELLOW Urine Appearance SLIGHTLY-CLOUDY Urine pH 6.0 Ur Specific [place] 1.014 Urine Protein NEGATIVE Urine Glucose (UA) NEGATIVE Urine Ketones NEGATIVE Urine Blood NEGATIVE Urine Nitrite NEGATIVE Urine Bilirubin NEGATIVE Urine Urobilinogen NEGATIVE Ur Leukocyte Esterase NEGATIVE Urine WBC (Auto) 1 Urine RBC (Auto) 0 Squamous Epi Cells Auto 1 Calcium Oxalate Cr Auto FEW Amorphous Sediment Auto TRACE Urine Mucus (Auto) RARE Urine Ascorbic Acid NEGATIVE - Diagnostic Test Radiology reviewed: Reports reviewed Discharge - Discharge Clinical Impression: Right-sided chest wall pain, Right upper quadrant abdominal pain, Elevated blood pressure reading Condition: Stable Disposition: HOME, SELF-CARE Instructions: Abdominal Pain ([facility]), Chest Wall Pain ([facility]) Additional Instructions: Return immediately for any new or worsening symptoms Followup with your primary care provider, Dr arteaga, call tomorrow to make a followup appointment Take your [place] and gabapentin at home as prescribed for pain relief Use lidocaine patches as directed to help with her pain symptoms. Prescriptions: Lidocaine [Lidoderm 5% (700 mg) Transdermal Patch] 1 patch TP DAILY #7 adh..patch Forms: Elevated Blood Pressure Referrals: LOCAL,NO [Primary Care Provider] - Follow up as needed
[2017-07-15 10:59] LABS: ABSOLUTE BASOPHILS # (AUTO) 0.1 10^3/uL (0.0-0.2); ABSOLUTE EOSINOPHILS # (AUTO) 0.2 10^3/uL (0.0-0.6); ABSOLUTE LYMPHOCYTES (AUTO) 0.8 10^3/uL (0.5-4.7); ABSOLUTE MONOCYTES (AUTO) 0.4 10^3/uL (0.1-1.4); ABSOLUTE NEUT (AUTO) 3.8 10^3/uL (1.7-8.2); BASOPHILS % (AUTO) 1.1 % (0-2); EOSINOPHILS % (AUTO) 3.4 % (0-6); HEMATOCRIT 37.9 % (36.0-47.0); HEMOGLOBIN 13.5 g/dL (12.0-15.5); HGB HCT DIFFERENCE 2.6; LYMPHOCYTES % (AUTO) 15.3 % (13-45); MEAN CORPUSCULAR HEMOGLOBIN 32.7 pg (27.0-33.4); MEAN CORPUSCULAR HGB CONC 35.5 g/dL (32.0-36.0); MEAN CORPUSCULAR VOLUME 92 fl (80-97); MONOCYTES % (AUTO) 7.6 % (3-13); RED BLOOD COUNT 4.12 10^6/uL (3.72-5.28); SEGMENTED NEUTROPHILS % (AUTO) 72.6 % (42-78); WHITE BLOOD COUNT 5.3 10^3/uL (4.0-10.5)
[2017-07-15 11:37] LABS: ALANINE AMINOTRANSFERASE 16 U/L (9-52); ALBUMIN 4.3 g/dL (3.5-5.0); ALKALINE PHOSPHATASE 61 U/L (38-126); ANION GAP 8 (5-19); ASPARTATE AMINO TRANSFERASE 17 U/L (14-36); BILIRUBIN,DIRECT 0.5 mg/dL (0.0-0.4); BILIRUBIN,TOTAL 0.5 mg/dL (0.2-1.3); BLOOD UREA NITROGEN 16 mg/dL (7-20); CALCIUM 9.9 mg/dL (8.4-10.2); CARBON DIOXIDE 33 mmol/L (22-30); CHLORIDE 102 mmol/L (98-107); CREATINE KINASE 70 U/L (30-135); CREATININE RESULT 0.69 mg/dL (0.52-1.25); GLUCOSE 170 mg/dL (75-110); LIPASE 46.5 U/L (23-300); MAGNESIUM 1.7 mg/dL (1.6-2.3); SODIUM 142.6 mmol/L (137-145); TOTAL PROTEIN 6.8 g/dL (6.3-8.2)
[2017-07-15 11:39] LABS: CREATINE KINASE MB 2.07 ng/mL (<4.55)
[2017-07-15 11:40] LABS: TROPONIN I < 0.012 ng/mL
[2017-07-15 12:07] LABS: AMORPHOUS SEDIMENT,URINE TRACE /HPF; APPEARANCE,URINE SLIGHTLY-CLOUDY; BILIRUBIN,URINE NEGATIVE (NEGATIVE); CALCIUM OXALATE CRYSTALS,URINE FEW /HPF; GLUCOSE, URINE NEGATIVE (NEGATIVE); KETONES,URINE NEGATIVE (NEGATIVE); LEUKOCYTE ESTERASE,URINE NEGATIVE (NEGATIVE); NITRITE,URINE NEGATIVE (NEGATIVE); PROTEIN,URINE NEGATIVE (NEGATIVE); URINE SPECIFIC GRAVITY 1.014; UROBILINOGEN,URINE NEGATIVE mg/dL (<2.0)
--- NOTE | 2017-07-15 13:06 | EKG REPORT ---
SEVERITY:- ABNORMAL ECG - SINUS RHYTHM PROBABLE LVH WITH SECONDARY REPOL ABNRM BORDERLINE INFERIOR Q WAVES CONSIDER ANTERIOR INFARCT : Confirmed by: Taiwo Ness MD 15-Jul-2017 13:05:49
[2017-07-15] MEDS ORDERED: ACETAMINOPHEN 325 MG TABLET PO ONE (13:39)
--- NOTE | 2017-07-15 14:58 | RADIOLOGY REPORT (SQ) ---
EXAM DESCRIPTION: CT ABD/PELVIS WITH IV ORAL COMPLETED DATE/TIME: 07/15/2017 2:41 pm REASON FOR STUDY: RUQ pain, hx lung ca-remission COMPARISON: PET-CT dated 04/07/2017. TECHNIQUE: CT scan of the abdomen and pelvis performed with intravenous and oral contrast using faisal micaela scanning technique with dynamic intravenous contrast injection. Images reviewed with lung, soft t issue, and bone windows. Reconstructed coronal and sagittal MPR images reviewed. Delayed images for e valuation of the urinary system also acquired. All images stored on PACS. All CT scanners at this facility use dose modulation, iterative reconstruction, and/or weight based d osing when appropriate to reduce radiation dose to as low as reasonably achievable (ALARA). [facility]: Dose Right [facility]: CareDose [facility]: Dose Right [facility]: Teradose 4D [facility]: [employer] CONTRAST TYPE AND DOSE: 54 mL Isovue 370- low osmolar. RENAL FUNCTION: BUN 16 creatinine 0.69. RADIATION DOSE: Up-to-date CT equipment and radiation dose reduction techniques were employed. CTDIv ol: 7.2 - 7.4 mGy. DLP: 849 mGy-cm.. LIMITATIONS: None. FINDINGS: LOWER CHEST: No significant findings. No nodules or infiltrates. LIVER: Normal size. No masses. No dilated ducts. SPLEEN: Normal size. No focal lesions. PANCREAS: No masses. No significant calcifications. No adjacent inflammation or peripancreatic fluid collections. Pancreatic duct not dilated. GALLBLADDER: Surgically absent. ADRENAL GLANDS: No significant masses or asymmetry. RIGHT KIDNEY AND URETER: No solid masses. No significant calcification. No hydronephrosis or hydroure ter. LEFT KIDNEY AND URETER: No solid masses. No significant calcification. No hydronephrosis or hydrouret er. AORTA AND VESSELS: Atherosclerosis with vascular calcifications. No aneurysm. No dissection. Renal a rteries, SMA, celiac without stenosis. RETROPERITONEUM: No retroperitoneal adenopathy, hemorrhage or masses. BOWEL AND PERITONEAL CAVITY: No obstruction. No visualized masses. No free fluid. No inflammatory ch anges or thickening of bowel wall. APPENDIX: Surgically absent. PELVIS: No significant masses. Normal bladder. No free fluid. ABDOMINAL WALL: No masses. No hernias. BONES: No significant or acute findings. Degenerative changes in the spine. OTHER: No other significant finding. IMPRESSION: NO SIGNIFICANT OR ACUTE FINDINGS IN THE ABDOMEN OR PELVIS. TECHNICAL DOCUMENTATION: JOB ID: [id number] Quality ID # [id number]: Final reports with documentation of one or more dose reduction techniques (e.g., Au tomated exposure control, adjustment of the mA and/or kV according to patient size, use of iterative reconstruction technique) 2010 [employer]- All Rights Reserved
--- NOTE | 2017-07-15 15:01 | RADIOLOGY REPORT (SQ) ---
EXAM DESCRIPTION: CT CHEST WITH COMPLETED DATE/TIME: 07/15/2017 2:41 pm REASON FOR STUDY: RUQ pain, hx lung ca-remission COMPARISON: PET-CT dated 04/07/2017. Chest CTA dated 03/12/2017. TECHNIQUE: CT scan of the chest performed using helical scanning technique with dynamic intravenous contrast injection. Images reviewed with lung, soft tissue and bone windows. Reconstructed coronal and sagittal MPR images reviewed. All images stored on PACS. All CT scanners at this facility use dose modulation, iterative reconstruction, and/or weight based d osing when appropriate to reduce radiation dose to as low as reasonably achievable (ALARA). [facility]: Dose Right [facility]: CareDose [facility]: Dose Right [facility]: Teradose 4D [facility]: [employer] CONTRAST TYPE AND DOSE: contrast/concentration: Isovue 370.00 mg/ml; Total Contrast Delivered: 54.0 ml; Total Saline Delivered: 47.7 ml RENAL FUNCTION: BUN 16 creatinine 0.69. RADIATION DOSE: . LIMITATIONS: None. FINDINGS: LUNGS AND PLEURA: No opacities, nodules, masses. No pneumothorax. No effusions. HILAR AND MEDIASTINAL STRUCTURES: No identified masses or abnormal nodes. HEART AND VASCULAR STRUCTURES: No aneurysm or dissection. No central pulmonary emboli. No pericardi al effusion. HARDWARE: None in the chest. UPPER ABDOMEN: No significant findings. Limited exam. THYROID AND OTHER SOFT TISSUES: No masses. No adenopathy. BONES: No significant finding. OTHER: No other significant finding. IMPRESSION: NORMAL CT OF THE CHEST WITH IV CONTRAST. TECHNICAL DOCUMENTATION: JOB ID: [id number] Quality ID # [id number]: Final reports with documentation of one or more dose reduction techniques (e.g., Au tomated exposure control, adjustment of the mA and/or kV according to patient size, use of iterative reconstruction technique) 2010 [employer]- All Rights Reserved
[2017-07-15 16:19] VITALS: BP 148/76
== END 2017-07-15 16:18 | disposition home or self-care (01) ==
LOC: ER 09:56
DX: R10.11 Right upper quadrant pain (principal); R07.89 Other chest pain; J44.9 Chronic obstructive pulmonary disease, unspecified; R05 Cough; I10 Essential (primary) hypertension; E11.9 Type 2 diabetes mellitus without complications; Z85.118 Personal history of other malignant neoplasm of bronchus and lung; Z92.3 Personal history of irradiation; Z92.21 Personal history of antineoplastic chemotherapy; Z90.49 Acquired absence of other specified parts of digestive tract; Z79.899 Other long term (current) drug therapy
CPT/HCPCS: 93005; 99284; 36415; 82553; 82550; 83690; 83735; 85025; 80053; 81001; 84484; 71260; 74177; 93010; A9270